=== PATIENT | female | born 1950 | race Caucasian/White ===

== ENCOUNTER 2016-08-04 19:10 | Inpatient (IN) ==
--- NOTE | 2016-08-04 19:50 | Emergency Department Note ---
Disposition Clinical Impression: Fall, Closed left hip fracture Disposition: Admitted As Inpatient Condition: Good Referrals: NO,PCP [Non-Partnered Physician] - Forms: ED Satisfaction Letter Time of Disposition: 21:10 Fall HPI - General Chief Complaint: ED Fall Stated Complaint: fall, L hip pain Time Seen by Provider: 08/04/16 19:15 Source: patient, EMS Mode of arrival: EMS Limitations: no limitations Nursing Notes Reviewed: Yes Vital Signs Reviewed: Yes - History of Present Illness HPI Narrative: 65-year-old female presents after a mechanical fall in which she tripped and fell onto her left hip. She complains of left hip pain and denies any other symptoms. She denies head injury or loss of consciousness. She denies neck pain, chest pain or shortness breath, abdominal pain, or back pain. She denies other extremity pain. She denies recent illness or injury, or medication change. Pt Subjective Complaint: fall - Related Data Home Medications Medication Instructions Recorded Confirmed Advair 500-50 Diskus 1 aerosol IH 2-3XD PRN 03/30/15 03/30/15 Albuterol Sulfate [Albuterol 2 puff IH TID 03/30/15 03/30/15 Inhaler] Atenolol [Tenormin] 50 tab PO DAILY 03/30/15 03/30/15 Atorvastatin 20 mg PO DAILY 03/30/15 03/30/15 Cyclobenzaprine [Flexeril] 10 mg PO TID 03/30/15 03/30/15 FLUoxetine HCl [Prozac] 40 mg PO DAILY 03/30/15 03/30/15 Furosemide [Lasix] 40 mg PO DAILY PRN 03/30/15 03/30/15 Isosorbide DInitrate 30 tab PO 03/30/15 03/30/15 Metformin HCl [Fortamet] 500 mg PO TID 03/30/15 03/31/15 Omeprazole [PriLOSEC] 40 mg PO DAILY 03/30/15 03/31/15 Previous Rx's Medication Instructions Recorded Levofloxacin [Levaquin] 500 mg PO DAILY #2 tablet 04/04/15 PredniSONE 10 tab PO DAILY #0 04/04/15 PredniSONE See Taper PO DAILY #27 tablet 04/04/15 Tiotropium [Spiriva] 18 mcg IH 0700 #30 capsule 04/04/15 Allergies Allergy/AdvReac Type Severity Reaction Status Date / Time No Known Allergies Allergy Verified 03/30/15 11:53 All systems ED: reviewed and negative except as stated. 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 - Social History Smoking Status: Former smoker Alcohol use: Reports: none Drug use: Reports: none Physical Exam - Head Head exam: atraumatic, normocephalic, normal inspection - Eye Eye exam: Present: normal appearance, PERRL, EOMI - ENT ENT exam: normal exam, normal oropharynx, mucous membranes moist - Neck Neck exam: Present: normal inspection, full ROM, trachea midline - Chest Chest inspection: Present: normal inspection, symmetric chest wall rise - Respiratory Respiratory exam: Clear to auscultation bilaterally without wheezes rales or rhonchi Cardiovascular Cardiovascular exam: Present: regular rate, normal rhythm, normal heart sounds - Abdominal Exam Abdominal exam: Present: soft, Non-Tender. Absent: tenderness, distention, guarding, rebound, rigidity - Extremities Exam There is diffuse tenderness to left hip. Normal pulses and sensation distal to the injury and equal in the bilateral lower extremity. No other tenderness to all 4 extremities. - Back Exam Back exam: Present: normal inspection, full ROM. Absent: tenderness, CVA tenderness (R), CVA tenderness (L) - Neurological Exam Neurological exam: Present: alert, oriented X3, CN II-XII intact - Psychiatric Psychiatric exam: Present: normal affect, normal mood - Skin Skin exam: Present: warm, dry, intact, normal color - General Limitations: no limitations General appearance: alert Course - Reevaluation(s) Reevaluation #1: Evaluation concerning for left femoral neck fracture. Dr. Benson notified and will see patient and consult the morning. Patient accepted to hospitalist service with Dr. Pulliam. Time: 21:16 Vital Signs Temperature 96.4 F L 08/04/16 19:13 Pulse Rate 99 08/04/16 19:13 Respiratory Rate 18 08/04/16 19:13 Blood Pressure 126/102 08/04/16 19:13 O2 Sat by Pulse Oximetry 92 L 08/04/16 19:13 Temperature 96.4 F L 08/04/16 19:13 Pulse Rate 101 08/04/16 21:02 Respiratory Rate 20 08/04/16 21:02 Blood Pressure 197/87 08/04/16 21:02 O2 Sat by Pulse Oximetry 92 L 08/04/16 21:02 Oxygen Delivery Oxygen Delivery Nasal Cannula Fall - Lab Data Result diagrams: 08/04/16 20:00 08/04/16 20:00 Lab Results 08/04/16 08/04/16 08/04/16 Range/Units 19:21 20:00 20:00 WBC 12.3 H (4.3-11.1) K/mcL RBC 4.90 (3.82-4.97) M/mcL Hgb 14.1 (11.5-15.4) g/dL Hct 44.1 (35.3-44.9) % MCV 90.0 (83.0-100.0) fL MCH 28.8 (28.0-33.3) pg MCHC 32.0 (31.6-35.5) g/dL RDW 12.9 (11.5-14.5) % Plt Count 265 (140-400) K/mcL MPV 10.1 (9.4-12.4) fL Immature Gran % 2.0 (0-4) % Seg Neutrophils % 73.3 % Lymphocytes % 18.4 % Monocytes % 4.7 % Eosinophils % 0.8 % Basophils % 0.8 % Neutrophils # 9.0 H (1.6-8.9) K/mcL Lymphocytes # 2.3 (0.6-4.6) K/mcL Monocytes # 0.6 (0.0-1.3) K/mcL Eosinophils # 0.1 (0.0-0.6) K/mcL Basophils # 0.1 (0.0-0.2) K/mcL Sodium 136 (136-145) mEq/L Potassium 4.0 (3.5-4.5) mEq/L Chloride 99 (98-109) mEq/L Carbon Dioxide 22 (19-29) mEq/L BUN 15 (7-20) mg/dL Creatinine 0.80 (0.57-1.11) mg/dL Est GFR ( Amer) > 60 (> 60) Est GFR (Non-Af Amer) > 60 (> 60) BUN/Creatinine Ratio 19 (6-26) Glucose 191 H (70-99) mg/dL POC Glucose 170 H (58-89) Calculated Osmolality 288 (280-300) Calcium 9.8 (8.6-10.8) mg/dL - EKG Data EKG attestation: Yes I reviewed and interpreted this EKG. EKG results narrative: Normal sinus rhythm at 94 with normal axis and intervals. No ST elevation or depression, there is nonspecific diffuse ST flattening. No significant change when compared with 03/30/2015. Attestation Statement - Attestation Attestation: I, Ger Wadsworth MD, personally performed a history and physical exam of the patient and discussed their management with the resident. I reviewed the resident's note and agree with the documented findings, medical decision making , and plan of care. 65-year-old female presents to the emergency department with a complaint that she lost her balance and fell at home just prior to arrival. She fell onto her left side and complains of left hip pain. She was unable to get up or bear weight on the hip. No other pain or injury from the fall. She states she did bump her head but there was no loss of consciousness and she denies any headache or head pain. No neck pain. No back pain. On examination patient is a well-developed obese elderly female in no acute distress. She is alert and oriented 3. There is no cyanosis or diaphoresis. Head is atraumatic. Neck supple and nontender with full range of motion. Rest sounds are clear and equal bilaterally. Heart regular rate and rhythm. Abdomen soft and nontender with normal bowel sounds. There is tenderness to palpation over the left hip with shortening and rotation of the left lower extremity. Her function distally. X-ray of the left hip shows an angulated femoral neck fracture. Chest x-ray showed no acute abnormality. Labs reviewed and unremarkable. Dr. Angeles discussed with the orthopedist, Dr. Benson, and he advised admit to the hospitalist. The hospitalist, Dr. Pulliam, was consulted and accepted admission of the patient.
[2016-08-04 20:08] LABS: Basophils # 0.1 K/mcL (0.0-0.2); Basophils % 0.8 %; Eosinophils # 0.1 K/mcL (0.0-0.6); Eosinophils % 0.8 %; Hematocrit 44.1 % (35.3-44.9); Hemoglobin 14.1 g/dL (11.5-15.4); Lymphocytes # 2.3 K/mcL (0.6-4.6); Lymphocytes % 18.4 %; Mean Corpuscular Hemoglobin 28.8 pg (28.0-33.3); Mean Platelet Volume 10.1 fL (9.4-12.4); Monocytes # 0.6 K/mcL (0.0-1.3); Monocytes % 4.7 %; Platelet Count 265 K/mcL (140-400); Red Cell Distribution Width 12.9 % (11.5-14.5); Segmented Neutrophils % 73.3 %
[2016-08-04 20:21] LABS: BUN/Creatinine Ratio 19 (6-26); Blood Urea Nitrogen 15 mg/dL (7-20); Calcium 9.8 mg/dL (8.6-10.8); Carbon Dioxide 22 mEq/L (19-29); Chloride 99 mEq/L (98-109); Glucose 191 mg/dL (70-99); Osmolality,Calculated 288 (280-300); Sodium 136 mEq/L (136-145); eGFR For African Americans > 60 (> 60); eGFR For Non-African Americans > 60 (> 60)
[2016-08-04] MEDS ORDERED: Ondansetron 4 MG/2 ML VIAL IVP STA (20:39)
[2016-08-04] MEDS ORDERED: *HR* HYDROmorphone (PF) 1 MG/ML SYRINGE IVP ONE (20:39)
[2016-08-04] MEDS ORDERED: Acetaminophen 325 MG TABLET PO PRN (23:45)
[2016-08-04] MEDS: *HR* HYDROmorphone (PF) 1 MG/ML SYRINGE IVP PRN (23:57)
[2016-08-05] MEDS ORDERED: Ondansetron 4 MG/2 ML VIAL IVP PRN (01:33)
[2016-08-05] MEDS ORDERED: *HR* Dextrose 50 % in Water (Syg) 50 ML SYRINGE IVP PRN (01:33)
[2016-08-05] MEDS ORDERED: D5% in Water 1,000 ML IV PRN (01:33)
[2016-08-05] MEDS ORDERED: Naloxone 0.4 MG/ML INJ IVP PRN (01:33)
[2016-08-05] MEDS ORDERED: Dextrose Gel 15 GM PO PRN ×2 (01:33)
[2016-08-05] MEDS ORDERED: Albuterol 2.5 MG/3 ML NEBULIZER IH PRN ×2 (01:40→13:39)
[2016-08-05] MEDS ORDERED: 0.9 % Sodium Chloride 1,000 ML IVC SCH (01:45)
--- NOTE | 2016-08-05 02:00 | Internal Med History&Physical ---
Date of Encounter: 08/05/16 Time of Encounter: 01:46 Assessment and Plan (1) Closed left hip fracture Current visit: Yes Status: Acute 1. Pt is high risk for perioperative morbidity and mortality due to her steroid and oxygen dependent COPD. Therefore, I recommend postponing surgery until pulmonary and anesthesia see patient in consultation and assess her risks. 2. I also will order ECHO to assess her LV function. 3. Dr. Benson consulted through the ER. 4. Will keep npo for any possible testing prior to surgery. Again, surgery should be postponed until the above consultants assess patient and give their recommendations. Qualifiers: Encounter type: initial encounter Qualified Code(s): S72.002A - Fracture of unspecified part of neck of left femur, initial encounter for closed fracture (2) Chronic steroid use Current visit: No Status: Chronic 1. I will order stress dose steroids in anticipation of possible surgery. 2. Wean Solu-cortef slowly after surgery back to home dose of prednisone. 3. Wound healing and recovery will likely be adversely affected by chronic steroid use. (3) Chronic respiratory failure Current visit: No Status: Chronic 1. Continue home oxygen at 2 -3 L NC. 2. Pt does not wear CPAP at home. 3. May need BiPap PRN. Qualifiers: Respiratory failure complication: hypercapnia Qualified Code(s): J96.12 - Chronic respiratory failure with hypercapnia (4) Non-insulin dependent type 2 diabetes mellitus Current visit: No Status: Chronic 1. Hold Metformin while in hospital. 2. Will use SSI. (5) Obstructive sleep apnea Current visit: No Status: Chronic 1. Pt non-compliant with home CPAP. 2. Will use CPAP/BiPap in the hospital if needed and if patient allows. (6) COPD (chronic obstructive pulmonary disease) Current visit: Yes Status: Chronic 1. Continue home meds as appropriate. 2. Steroid dependent. Will start Solu-Cortef stress dosing. 3. Consult Pulmonary and Anesthesia prior to surgery. 4. No acute flare up presently. Qualifiers: COPD type: emphysema Emphysema type: unspecified Qualified Code(s): J43.9 - Emphysema, unspecified (7) DVT prophylaxis Current visit: No Status: Acute 1. Heparin SQ. Internal Medicine - H&P: HPI Chief complaint: left hip fracture Admitted From: Emergency Dept Plans for Post Hospital Care: Home History of present illness: Ms. Stovall is a 65 year old female who presents to the hospital with complaints of pain in her left hip. She sustained a fall earlier today at home and injured her left hip. She was unable to get off the ground and was in severe pain. She was brought in by squad. Workup in the ER confirmed left hip fracture and patient has been admitted to the hospitalists service with an orthopedic consult. Upon my assessment of the patient, patient is in significant pain due to her fracture. She confirms a history of mechanical fall earlier. She denies any syncope. I reviewed her history and note that she has severe COPD, which is both steroid and oxygen dependent. She is very sedentary and minimally mobile. She has a history of diastolic congestive heart failure and sleep apnea. She is noncompliant with her CPAP. She has dyspnea at rest and has severe dyspnea with exertion. She has never undergone surgery and, as a result, we are unable to predict her reaction to anesthesia and postoperative course. Patient is also morbidly obese and may pose a problem for airway issue for anesthesia and postoperatively. As such, I recommend patient undergo pulmonary consultation preoperatively as well as anesthesia consultation and a preoperative echo. I anticipate she would be high risk for cardiovascular and respiratory complications perioperatively. Therefore, I recommend surgery be postponed until patient can be assessed both by pulmonology and anesthesia. I explained this to the patient, and she agrees with my recommendations. Past Med Surg Social Fam HX - Past Medical History Attestation: Yes The following information was validated with the patient. Source: patient, old records reviewed Medical history: CHF (diastolic), COPD (steroid and oxygen dependent), diabetes Psychiatric history: no psych history - Past Surgical History Surgical History: no surgical history - Social History Smoking Status: Former smoker (30+ year history of smoking) Smokeless Tobacco Status: No Alcohol use: none Drug use: none Current living situation: Home, With Family Activity Level: Mostly sedentary Recent Out of Country Travel Within the Last 8 Weeks: No - Family History Mother Hx Family Cardiac Disorders: Yes ([place]) Hx Family Cancer: Yes (CANCER) Internal Medicine - H&P: Meds Advair 500-50 Diskus 1 aerosol IH 2-3XD PRN 03/30/15 [History] Albuterol Sulfate [Albuterol Inhaler] 2 puff IH TID 03/30/15 [History] Atenolol [Tenormin] 50 tab PO DAILY 03/30/15 [History] Atorvastatin 20 mg PO DAILY 03/30/15 [History] Cyclobenzaprine [Flexeril] 10 mg PO TID 03/30/15 [History] FLUoxetine HCl [Prozac] 40 mg PO DAILY 03/30/15 [History] Furosemide [Lasix] 40 mg PO DAILY PRN 03/30/15 [History] Isosorbide DInitrate 30 tab PO 03/30/15 [History] Metformin HCl [Fortamet] 500 mg PO TID 03/30/15 [History] Omeprazole [PriLOSEC] 40 mg PO DAILY 03/30/15 [History] Levofloxacin [Levaquin] 500 mg PO DAILY #2 tablet 04/04/15 [Rx] PredniSONE 10 tab PO DAILY #0 04/04/15 [Rx] PredniSONE See Taper PO DAILY #27 tablet 04/04/15 [Rx] Tiotropium [Spiriva] 18 mcg IH 0700 #30 capsule 04/04/15 [Rx] Allergies No Known Allergies Allergy (Verified 03/30/15 11:53) - Constitutional Constitutional: falls, no chills, no fever(s) - EENT Eyes: no blurry vision, no change in vision Ears: no ear pain, no tinnitus Nose, mouth and throat: no nasal congestion, no sinus pain, no sinus pressure - Cardiovascular Cardiovascular ROS IM: no chest pain, no edema, no irregular heart rhythm, no lightheadedness, no orthopnea, no syncope - Respiratory Respiratory: dyspnea (chronic -- both at rest and with exertion), no cough, no excessive phlegm production, no change in phlegm color, no pain with cough - Gastrointestinal Gastrointestinal: no abdominal pain, no diarrhea, no hematemesis, no hematochezia, no melena, no vomiting - Genitourinary Genitourinary: no dysuria, no hematuria - Musculoskeletal Musculoskeletal ROS IM: arthralgias, back pain, muscle cramps - Integumentary Integumentary IM: no rash, no jaundice - Neurological Neurological ROS: frequent falls, no dizziness, no focal weakness, no headache(s ) - Psychiatric Psychiatric: anxiety, no depression - Endocrine Endocrine IM: no cold intolerance, no heat intolerance, no polydipsia, no polyuria - Hematologic/Lymphatic Hematologic/Lymphatic: no easy bruising, no lymphadenopathy - Allergic/Immunologic Allergic/Immunologic: wheezing, no GI upset with certain foods - Constitutional Vitals: Temp Pulse Resp BP Pulse Ox 98.2 F 109 22 174/90 94 L 08/04/16 22:56 08/04/16 22:56 08/04/16 22:56 08/04/16 22:56 08/05/16 00:01 General appearance: Present: cooperative, mild distress (due to pain; also she is SOB (chronic)), A&O X 3, morbidly obese, pleasant, answers questions appropriately - Head Head exam: Present: atraumatic, normal inspection - Expanded Head Exam Head exam expanded: Absent: abrasion, Jerome's sign, general tenderness - Eye Eye exam: Present: EOMI, normal appearance, PERRL. Absent: scleral icterus Pupils: Present: normal accommodation - ENT ENT exam: Present: mucous membranes dry, normal exam, normal oropharynx - Neck Neck exam general surgery: Present: full ROM, normal inspection, supple. Absent : lymphadenopathy, tenderness - Respiratory Respiratory exam: Present: accessory muscle use, decreased breath sounds, prolonged expiratory phase, respiratory distress (mild ), wheezes, tachypnea. Absent: CTAB - Cardiovascular Cardiovascular exam: Present: distant heart sounds, RRR, +S1, +S2. Absent: diastolic murmur, JVD, systolic murmur - GI/Abdominal GI/Abdominal exam: Present: normal bowel sounds, soft. Absent: guarding, hepatomegaly, rebound, splenomegaly, tenderness - Extremities Exam Extremities exam: Present: warm. Absent: calf tenderness, joint swelling, pedal edema Additional comments: pain left hip/femur -- due to fracture - Back Exam Back exam: Absent: CVA tenderness (L), CVA tenderness (R) - Neurological Exam Neurological exam: Present: alert, CN II-XII intact, oriented X3, no focal deficits - Psychiatric Psychiatric exam: Present: normal affect, normal mood - Skin Skin exam: Present: dry, warm. Absent: rash Internal Med - H&P Results - Labs CBC & Chem 7: 08/04/16 20:00 08/04/16 20:00 - EKG Data -: EKG Interpreted by Myself - EKG Data Prior EKG available for review: yes When compared to previous EKG: there is no significant change EKG comments: 08/05/16 02:08 Sinus rhtyhm -- non-specific ST-T flattening in precordial leads - Diagnostic Studies Chest x-ray Additional comments: report reviewed -- negative
[2016-08-05 03:46] LABS: Basophils # 0.1 K/mcL (0.0-0.2); Basophils % 0.5 %; Eosinophils # 0.1 K/mcL (0.0-0.6); Eosinophils % 0.7 %; Hematocrit 43.3 % (35.3-44.9); Hemoglobin 13.8 g/dL (11.5-15.4); Immature Granulocytes % 0.9 % (0-4); Lymphocytes # 2.1 K/mcL (0.6-4.6); Lymphocytes % 11.8 %; Mean Corpuscular HGB Conc 31.9 g/dL (31.6-35.5); Mean Corpuscular Hemoglobin 28.9 pg (28.0-33.3); Mean Corpuscular Volume 90.6 fL (83.0-100.0); Mean Platelet Volume 10.3 fL (9.4-12.4); Monocytes # 1.1 K/mcL (0.0-1.3); Neutrophils # 14.2 K/mcL (1.6-8.9); Platelet Count 248 K/mcL (140-400); Red Blood Count 4.78 M/mcL (3.82-4.97); Red Cell Distribution Width 12.9 % (11.5-14.5); Segmented Neutrophils % 80.1 %
[2016-08-05] MEDS: Ipratropium/Albuterol Neb 3 ML IH SCH ×5 (04:00→20:27)
[2016-08-05 04:04] LABS: Alanine Aminotransferase 38 Units/L (0-55); Albumin 3.5 g/dL (3.5-5.0); Albumin/Globulin Ratio 0.9 (1.1-2.2); Alkaline Phosphatase 79 Units/L (38-126); Aspartate Amino Transferase 32 Units/L (5-34); BUN/Creatinine Ratio 19 (6-26); Bilirubin,Total 0.5 mg/dL (0.2-1.2); Blood Urea Nitrogen 14 mg/dL (7-20); Calcium 9.5 mg/dL (8.6-10.8); Carbon Dioxide 22 mEq/L (19-29); Chloride 100 mEq/L (98-109); Globulin 3.8 g/dL (2.4-3.5); Glucose 226 mg/dL (70-99); Magnesium 1.9 mg/dL (1.6-2.6); Osmolality,Calculated 290 (280-300); Potassium 4.5 mEq/L (3.5-4.5); Sodium 136 mEq/L (136-145); Total Protein 7.3 g/dL (6.0-8.3); eGFR For African Americans > 60 (> 60); eGFR For Non-African Americans > 60 (> 60)
[2016-08-05] MEDS: Insulin LISPRO 300 UNITS/3 ML VIAL SQ SCH ×3 (06:16→17:04)
[2016-08-05] MEDS: *HR* Heparin 5,000 UNIT/ML VIAL SQ SCH ×2 (06:18→21:17)
--- NOTE | 2016-08-05 06:35 | Orthopedic Consult Note ---
Date of Encounter: 08/05/16 Time of Encounter: 06:33 History of Present Illness HPI: Ms. Stovall is a 65 year old female A significant pulmonary history status post fall yesterday with left hip fracture. Patient awake and alert and oriented 3 Left lower extremity decreased range of motion secondary to pain Shortness rotated Neurovascular intact X-ray review displaced left femoral neck fracture Surgical recommendation left hip hemiarthroplasty will require medical clearance risk-benefit as well as recovery for the surgical procedure were discussed as well as stressing the risk of the surgery with regard to her medical comorbidities. Past Med Surg Social Fam HX - Past Medical History Medical history: CHF (diastolic), COPD (steroid and oxygen dependent), diabetes Psychiatric history: no psych history - Past Surgical History Surgical History: no surgical history - Social History Smoking Status: Former smoker (30+ year history of smoking) Smokeless Tobacco Status: No Alcohol use: none Drug use: none - Family History Mother Hx Family Cardiac Disorders: Yes ([place]) Hx Family Cancer: Yes (CANCER) Medications and Allergies Advair 500-50 Diskus 1 aerosol IH 2-3XD PRN 03/30/15 [History] Albuterol Sulfate [Albuterol Inhaler] 2 puff IH TID 03/30/15 [History] Atenolol [Tenormin] 50 tab PO DAILY 03/30/15 [History] Atorvastatin 20 mg PO DAILY 03/30/15 [History] Cyclobenzaprine [Flexeril] 10 mg PO TID 03/30/15 [History] FLUoxetine HCl [Prozac] 40 mg PO DAILY 03/30/15 [History] Furosemide [Lasix] 40 mg PO DAILY PRN 03/30/15 [History] Isosorbide DInitrate 30 tab PO 03/30/15 [History] Metformin HCl [Fortamet] 500 mg PO TID 03/30/15 [History] Omeprazole [PriLOSEC] 40 mg PO DAILY 03/30/15 [History] Levofloxacin [Levaquin] 500 mg PO DAILY #2 tablet 04/04/15 [Rx] PredniSONE 10 tab PO DAILY #0 04/04/15 [Rx] PredniSONE See Taper PO DAILY #27 tablet 04/04/15 [Rx] Tiotropium [Spiriva] 18 mcg IH 0700 #30 capsule 04/04/15 [Rx] Allergies No Known Allergies Allergy (Verified 03/30/15 11:53) All Systems Reviewed: A 10-system review of systems was performed and is negative for pertinent findings except as documented above in the HPI. Physical Exam - Constitutional Vitals: Temp Pulse Resp BP Pulse Ox 98.2 F 109 18 174/90 93 L 08/04/16 22:56 08/04/16 22:56 08/05/16 04:00 08/04/16 22:56 08/05/16 04:00 Results - Labs Result Diagrams: 08/05/16 03:36 08/05/16 03:36 Labs: Abnormal lab results WBC 17.7 K/mcL (4.3-11.1) H 08/05/16 03:36 Neutrophils # 14.2 K/mcL (1.6-8.9) H 08/05/16 03:36 Glucose 226 mg/dL (70-99) H 08/05/16 03:36 POC Glucose 198 (58-89) H 08/05/16 05:57 Globulin 3.8 g/dL (2.4-3.5) H 08/05/16 03:36 Albumin/Globulin Ratio 0.9 (1.1-2.2) L 08/05/16 03:36 H & H 08/05/16 Range/Units 03:36 Hgb 13.8 (11.5-15.4) g/dL Hct 43.3 (35.3-44.9) % All other labs normal. Consult Discharge Plan - Plan Referrals: Chrissie Ken MD [Primary Care Provider] -
[2016-08-05] MEDS: *HR* HYDROmorphone (PF) 1 MG/ML SYRINGE IVP PRN ×2 (07:34→19:40)
[2016-08-05] MEDS: Hydrocortisone Sodium Succ 100 MG/2 ML VIAL IVP SCH ×2 (08:14→17:04)
[2016-08-05] MEDS: Famotidine 20 MG TABLET PO SCH ×2 (08:14→19:40)
--- NOTE | 2016-08-05 08:46 | Pulmonology Consult Note ---
Date of Encounter: 08/05/16 Time of Encounter: 08:42 Assessment and Plan (1) Preop pulmonary/respiratory exam Current Visit: Yes Status: Acute Preoperative Pulmonary Risk Assessment and Optimization Operation Directly Involves the Diaphgram: No Procedure Related Risk: Low Overall Risk of Patient:: High (this was determined by severity of COPD with chronic respiratory failure, complicated by Anxiety and LONNIE/morbid Obesity) [place] Respiratory failure index: 4.2% Postoperative Pneumonia Risk (Vines et al) approx 7.6% Post-operative complications including but not limited to pneumonia, respiratory failure requiring ventilation, and prolonged intubation requiring hospitalization. Specific Perioperative Recommendations: -Agree with stress dose steroids, -schedule bronchodilators (duonebs) every 6 hours, -use of CPAP with autotitration while receiving narcotics as high risk for acute cardiopulmonary failure, -monitor on tele with continuous pulse oximetry -agree with cardiology consult and repeat ECHO. Based upon todays exam BP control and would stop maint fluids -wean Fio2 to keep Spo2 >89-92% General Perioperative Pulmonary Recommendations: 1. Delay or cancel planned surgery for acute respiratory infection or exacerbation of pulmonary disease 2. Spinal or epidural anesthesia is favored over general anesthesia for patients who are at high risk for postoperative pulmonary complications 3. Optimize pain control while limiting use of sedatives and judicious use of narcotics. 4. Encourage early ambulation and use of incentive spirometry 5. Administration of bronchodilators 6. VTE prophylaxis including mechanical or chemical prophylaxis as dictated by post operative bleeding risk. 7.PAP therapy use during perioperative period unless contraindicated. (2) Closed left hip fracture Current Visit: Yes Status: Acute Qualifiers: Encounter type: initial encounter Qualified Code(s): S72.002A - Fracture of unspecified part of neck of left femur, initial encounter for closed fracture (3) COPD (chronic obstructive pulmonary disease) Current Visit: Yes Status: Chronic Qualifiers: COPD type: emphysema Emphysema type: unspecified Qualified Code(s): J43.9 - Emphysema, unspecified (4) Obesity Current Visit: No Status: Acute Qualifiers: Obesity severity: morbid Qualified Code(s): E66.01 - Morbid (severe) obesity due to excess calories (5) Chronic respiratory failure Current Visit: No Status: Chronic Qualifiers: Respiratory failure complication: hypercapnia Qualified Code(s): J96.12 - Chronic respiratory failure with hypercapnia (6) Obstructive sleep apnea Current Visit: No Status: Chronic History of Present Illness Consult date: 08/05/16 Requesting physician: Lizandro Snow Reason for consult: COPD Chief complaint: COPD History of present illness: Ms. Stovall is a 65-year-old woman with a history of advanced COPD with chronic respiratory failure dependent on oxygen and steroid dependent for COPD. This is complicated by severe anxiety and obstructive sleep apnea for which she is noncompliant with positive airway pressure therapy. Patient is also morbidly obese has a history of underlying diastolic dysfunction. She was admitted after fall with right femoral neck fracture. Lorazepam consult of her preoperative risk assessment and optimization. Patient was previously seen in pulmonary clinic greater than 2 years ago and has not been seen since she says that she has not followed up with pulmonary because of severe anxiety that limits her ability to leave the house. She cannot tolerate positive pressure therapy secondary to the high flow of air against her face. She denies having been admitted to the hospital last year for COPD exacerbation. She has no recent episodes of undergoing anesthesia. She did not have any recent pulmonary function testing were 6 minute walk to determine functional status although at home she says she is very limited can barely do activities of daily living. Past Med Surg Social Fam HX - Past Medical History Medical history: CHF (diastolic), COPD (steroid and oxygen dependent), diabetes Psychiatric history: no psych history - Past Surgical History Surgical History: no surgical history - Social History Smoking Status: Former smoker (30+ year history of smoking) Smokeless Tobacco Status: No Alcohol use: none Drug use: none - Family History Mother Hx Family Cardiac Disorders: Yes (HI) Hx Family Cancer: Yes (CANCER) Medications and Allergies Advair 500-50 Diskus 1 aerosol IH 2-3XD PRN 03/30/15 [History] Albuterol Sulfate [Albuterol Inhaler] 2 puff IH TID 03/30/15 [History] Atenolol [Tenormin] 50 tab PO DAILY 03/30/15 [History] Atorvastatin 20 mg PO DAILY 03/30/15 [History] Cyclobenzaprine [Flexeril] 10 mg PO TID 03/30/15 [History] FLUoxetine HCl [Prozac] 40 mg PO DAILY 03/30/15 [History] Furosemide [Lasix] 40 mg PO DAILY PRN 03/30/15 [History] Isosorbide DInitrate 30 tab PO 03/30/15 [History] Metformin HCl [Fortamet] 500 mg PO TID 03/30/15 [History] Omeprazole [PriLOSEC] 40 mg PO DAILY 03/30/15 [History] Levofloxacin [Levaquin] 500 mg PO DAILY #2 tablet 04/04/15 [Rx] PredniSONE 10 tab PO DAILY #0 04/04/15 [Rx] PredniSONE See Taper PO DAILY #27 tablet 04/04/15 [Rx] Tiotropium [Spiriva] 18 mcg IH 0700 #30 capsule 04/04/15 [Rx] Allergies No Known Allergies Allergy (Verified 03/30/15 11:53) All Systems: A 10-system review of systems was performed and is negative for pertinent findings except as documented above in the HPI. Physical Examination Vital Signs: Vital Signs, Last 4 Hours Temp Pulse Resp BP Pulse Ox 08/05/16 07:25 97.7 F 112 24 172/90 94 L General appearance: appears uncomfortable Eyes: nonicteric ENT: oropharynx moist Neck: supple, no lymphadenopathy Effort: mildly labored Auscultation: bilateral: diminished breath sounds (no clear wheezes ), other ( exam limited by body habitus and position) Cardiovascular: regular rate and rhythm Gastrointestinal: normoactive bowel sounds, non-tender Integumentary: normal Extremities: no cyanosis, other (trace b/l LE edema ) Musculoskeletal: joint tenderness (right hip ) normal mental status, non-focal exam, pupils equal and round anxious Results - Laboratory Findings CBC and BMP: 08/05/16 03:36 08/05/16 03:36 Abnormal lab findings: Abnormal lab results WBC 17.7 K/mcL (4.3-11.1) H 08/05/16 03:36 Neutrophils # 14.2 K/mcL (1.6-8.9) H 08/05/16 03:36 Glucose 226 mg/dL (70-99) H 08/05/16 03:36 POC Glucose 198 (58-89) H 08/05/16 05:57 Globulin 3.8 g/dL (2.4-3.5) H 08/05/16 03:36 Albumin/Globulin Ratio 0.9 (1.1-2.2) L 08/05/16 03:36 Consult Discharge Plan - Plan Referrals: Chrissie Ken MD [Primary Care Provider] -
[2016-08-05] MEDS ORDERED: Budesonide/Formoterol 160/4.5 MDI IH SCH (10:00)
[2016-08-05] MEDS ORDERED: NON-FORMULARY MEDICATION 1 EACH EACH (Oxygen [Oxygen] 3 L) SCH (13:45)
--- NOTE | 2016-08-05 15:21 | Internal Med Progress Note ---
Date of Encounter: 08/05/16 Time of Encounter: 09:10 - Assessment and plan (1) Closed left hip fracture Current Visit: Yes Status: Acute Assessment and plan: XRAY consistent with displaced left femoral neck fracture Ortho eval appreciated Given patient's chronic lung disease, patient is at high risk for post operative pulmonary complications. As per pulmonary, spinal or epidural anesthesia is favored over general anesthesia Awaiting anesthesia pre-op eval continue pain control Qualifiers: Encounter type: initial encounter Qualified Code(s): S72.002A - Fracture of unspecified part of neck of left femur, initial encounter for closed fracture (2) Preop pulmonary/respiratory exam Current Visit: Yes Status: Acute Assessment and plan: Pulmonary Eval with Dr. Valle appreciated Patient is high risk for postoperative pulmonary complications given chronic lung disease (3) COPD (chronic obstructive pulmonary disease) Current Visit: Yes Status: Chronic Assessment and plan: patient chronically on steroids Started stress dose steroids in anticipation of surgery continue CPAP use continue to monitor O2 sat, with O2 sat goal: 89-92% continue bronchodilator support as needed Qualifiers: COPD type: emphysema Emphysema type: unspecified Qualified Code(s): J43.9 - Emphysema, unspecified (4) Chronic respiratory failure Current Visit: No Status: Chronic Qualifiers: Respiratory failure complication: hypercapnia Qualified Code(s): J96.12 - Chronic respiratory failure with hypercapnia (5) Non-insulin dependent type 2 diabetes mellitus Current Visit: No Status: Chronic Assessment and plan: continue sliding scale insulin algorithm monitor fingerstick and blood glucose (6) Obstructive sleep apnea Current Visit: No Status: Chronic Assessment and plan: CPAP at bedtime (7) Morbid obesity with BMI of 40.0-44.9, adult Current Visit: Yes Status: Chronic (8) DVT prophylaxis Current Visit: No Status: Acute Assessment and plan: Heparin SQ (9) Hypertension Current Visit: Yes Status: Acute Assessment and plan: BP within acceptable range Tachycardia likely secondary to missed home dose of Atenolol Will restart home medications D/C IV fluids Qualifiers: Hypertension type: essential hypertension Qualified Code(s): I10 - Essential (primary) hypertension (10) Leukocytosis Current Visit: Yes Status: Acute Assessment and plan: Likely secondary to steroids no signs of infection present will continue to monitor off antibiotics at this time Qualifiers: Leukocytosis type: unspecified Qualified Code(s): D72.829 - Elevated white blood cell count, unspecified - Subjective Interval history: Patient seen and examined at bedside. REsting in bed, saturating well on bipap. Reported of breathing comfortably on bipap and pain being adequately controlled with the current pain regimen. - Constitutional Vitals: Temp Pulse Resp BP Pulse Ox 98.2 F 110 20 132/84 95 08/05/16 12:07 08/05/16 12:07 08/05/16 12:07 08/05/16 12:07 08/05/16 12:07 General appearance: Present: cooperative, A&O X 3, morbidly obese, pleasant, no acute distress, answers questions appropriately - Head Head exam: Present: atraumatic, normocephalic - Eye Eye exam: Present: conjuntiva pink, sclera anicteric - Respiratory Respiratory exam: Present: decreased breath sounds. Absent: wheezes - Cardiovascular Cardiovascular exam: Present: RRR, +S1, +S2 - GI/Abdominal GI/Abdominal exam: Present: normal bowel sounds, soft. Absent: distended, tenderness - Extremities Exam Extremities exam: Present: tenderness (left hip), warm, radial pulses palpable and symetrical. Absent: calf tenderness, pedal edema - Neurological Exam Neurological exam: Present: alert, oriented X3 - Psychiatric Psychiatric exam: Present: normal affect, normal mood Internal Medicine: Result - Labs CBC & Chem 7: 08/05/16 03:36 08/05/16 03:36 Labs: Short CBC 08/05/16 Range/Units 03:36 WBC 17.7 H (4.3-11.1) K/mcL Hgb 13.8 (11.5-15.4) g/dL Hct 43.3 (35.3-44.9) % Plt Count 248 (140-400) K/mcL Neutrophils # 14.2 H (1.6-8.9) K/mcL BMP 08/05/16 03:36 Sodium 136 Potassium 4.5 Chloride 100 Carbon Dioxide 22 BUN 14 Creatinine 0.73 Glucose 226 H Calcium 9.5 Liver Function 08/05/16 Range/Units 03:36 Total Bilirubin 0.5 (0.2-1.2) mg/dL AST 32 (5-34) Units/L ALT 38 (0-55) Units/L Alkaline Phosphatase 79 (38-126) Units/L Albumin 3.5 (3.5-5.0) g/dL Consult Discharge Plan - Plan Referrals: Rachid Benson MD [Partnered Physician] - 09/17/16 8:10 am Gay Green PAC [Physician Board Certified Music Therapist] - 08/22/16 11:00 am Chrissie Ken MD [Primary Care Provider] - 08/09/16 10:00 am
--- NOTE | 2016-08-05 15:48 | ECHO - Doppler Report ---
Echocardiogram Name: Susanna Stovall Date of Study: 08/05/2016 Date: 1950 Ht: 62.0 in Medical Record#: [id number] Age: 65 Wt: 242.0 lb Gender: Female BSA: 2.07 Order #: [id number] Location: [facility] Room #: [facility] Reading Physician: Aleisha Hernández DO Mannequin Sander And Finisher: Mookie Quintero RN Ordering Physician: Lizandro Snow MD Primary Physician: Chrissie Ken MD Indications: Preoperative Examination, COPD Impressions: LVEF 65%. Normal left ventricular size and systolic function. Indeterminate diastolic function. Normal right ventricular size and function. No significant valvular dysfunction. No pulmonary hypertension. Left Ventricular Wall Motion: Rest Echo Findings All wall segments showed normal motion. Findings: Study Quality * Technically sub-optimal due to body habitus. ECG Findings * Unclear underlying rhythm. Consider sinus tachycardia. Aortic Valve * No aortic regurgitation. * Aortic valve not well visualized. * No aortic stenosis. Mitral Valve * No mitral regurgitation. * Normal mitral valve structure. * No mitral stenosis. Left Atrium * Normal left atrial size. Left Ventricle * LVEF 65%. * Normal LV chamber size, wall thickness and function. * Indeterminate diastolic function. Tricuspid Valve * Tricuspid valve not well visualized. * No tricuspid regurgitation. Pulmonic Valve * Pulmonic valve is not well visualized. * No pulmonic stenosis. * No pulmonic regurgitation. Pulmonary Artery * Pulmonary artery not well visualized. Right Ventricle * Normal right ventricular structure and function. Right Atrium * Normal right atrial size. Interatrial Septum * No evidence of PFO by color Doppler. IVC * The IVC is not well evaluated. Pericardium * There is no pericardial effusion present. Aorta * Not well visualized. History Hypertension Diabetes Hypercholesteremia Family History of CAD 03/30/2015 a Previous Echo was performed. Measurements: BP: 132/ 84 2D Normal Values IVSd: .90 cm 0.6 - 1.0 cm LVIDd: 4.40 cm 3.7 - 5.6 cm LVPWd: .90 cm 0.6 - 1.1 cm LVIDs: 2.80 cm 1.5 - 3.6 cm LA: 3.50 cm 2.0 - 4.0cm %FS: 36.40 cm >25 % LVOT Diam: 2.00 cm LA volume: 38 Mitral Valve Peak E:.96 m/sec Peak E' Lat Cristian:8.77 cm/s Peak E' Med Cristian:8.68 cm/s E/E' Lat Ratio:11 E/E' Med Ratio:11.1 Updated by Aleisha Hernández on 08/05/2016 3:39:24 PM electronically signed on 08/05/2016 3:41:15 PM with status of Final Wall Motion [place]: 1=Normal, 2=Hypokinesis, 3=Akinesis, 4=Dyskinesis, 5=Aneurysmal, 6=Hyperkinetic, X=Not Visualized (Blank)=Missing
--- NOTE | 2016-08-05 17:40 | Electrocardiograph Report ---
[place] [id number] Test Date: 2016-08-04 Pat Name: Susanna Stovall Department: 105 Room: [facility] Gender: F Senior Partner: : 1950 Requested By: Lc Angeles Order Number: [id number] Reading MD: Aleisha Hernández Measurements Intervals [place] Rate: 94 P: 81 [place]: 168 QRS: 88 QRSD: 83 T: 71 QT: 365 QTc: 417 Interpretive Statements SINUS RHYTHM NONSPECIFIC T-WAVE ABNORMALITY Electronically Signed On 08-05-2016 17:38:52 EST by Aleisha Hernández
[2016-08-05] MEDS: Budesonide/Formoterol 160/4.5 MDI IH SCH (20:27)
[2016-08-06] MEDS: Hydrocortisone Sodium Succ 100 MG/2 ML VIAL IVP SCH ×3 (00:01→15:24)
[2016-08-06] MEDS: Insulin LISPRO 300 UNITS/3 ML VIAL SQ SCH ×4 (00:01→18:20)
[2016-08-06] MEDS: Ipratropium/Albuterol Neb 3 ML IH SCH ×7 (00:19→23:18)
[2016-08-06 05:09] LABS: Bilirubin,Urine Small (Negative); Blood,Urine Moderate (Negative); Color,Urine Amber (Yellow); Glucose,Urine (UA) Normal (Normal); Ketones,Urine Negative (Negative); Leukocyte Esterase,Urine Negative (Negative); Nitrite,Urine Negative (Negative); PH,Urine 5.5 pH Units (5.0-8.0); Protein,Urine 30 mg/dL (Neg-Trace); Specific Gravity,Urine 1.029 (1.010-1.025); Urobilinogen,Urine Normal (Normal)
[2016-08-06 05:10] LABS: Clarity,Urine Turbid (Clear)
[2016-08-06 05:14] LABS: Amorphous Sediment,Urine Many (Few); Bacteria,Urine Many per hpf (None-Few); Hyaline Casts,Urine None Seen per lpf (None-Few); Mucus,Urine Moderate (Few); Squamous Epithelial Cell,Urine Few per lpf (None-Few); WBC,Urine 0-3 per hpf (0-3)
[2016-08-06 06:19] LABS: Basophils % 0.3 %; Eosinophils # 0.1 K/mcL (0.0-0.6); Eosinophils % 0.5 %; Hematocrit 42.3 % (35.3-44.9); Hemoglobin 13.4 g/dL (11.5-15.4); Immature Granulocytes % 1.2 % (0-4); Lymphocytes # 1.3 K/mcL (0.6-4.6); Lymphocytes % 11.2 %; Mean Corpuscular HGB Conc 31.7 g/dL (31.6-35.5); Mean Corpuscular Hemoglobin 28.5 pg (28.0-33.3); Mean Platelet Volume 10.5 fL (9.4-12.4); Monocytes # 0.6 K/mcL (0.0-1.3); Monocytes % 5.1 %; Neutrophils # 9.8 K/mcL (1.6-8.9); Platelet Count 223 K/mcL (140-400); Red Cell Distribution Width 13.1 % (11.5-14.5); Segmented Neutrophils % 81.7 %
[2016-08-06] MEDS: *HR* Heparin 5,000 UNIT/ML VIAL SQ SCH ×2 (06:29→18:22)
--- NOTE | 2016-08-06 06:30 | Orthopedics Progress Note ---
Date of Encounter: 08/06/16 Time of Encounter: 06:29 Subjective Interval history: Patient seen this morning understand she is high risk for surgical procedure. Would like to attempt procedure under spinal. Surgery for tomorrow morning Objective Vital signs: Vital Signs Temp Pulse Resp BP Pulse Ox 08/06/16 04:00 98.1 F 93 24 150/93 95 08/06/16 03:37 20 95 08/06/16 00:19 20 95 08/05/16 23:43 98.0 F 83 23 148/98 95 08/05/16 20:27 19 94 L 08/05/16 19:40 98.3 F 88 25 151/98 95 08/05/16 17:34 20 96 Intake and Output 08/05/16 08/05/16 08/06/16 15:59 23:59 07:59 Output Total 450 / 450 Balance -450 / -450 Output: Catheter 450 / 450 Other: Blood Glucose* 155 164 - Labs CBC & BMP: 08/06/16 06:01 08/05/16 03:36 Labs: Abnormal lab results WBC 12.0 K/mcL (4.3-11.1) H 08/06/16 06:01 Neutrophils # 9.8 K/mcL (1.6-8.9) H 08/06/16 06:01 Glucose 226 mg/dL (70-99) H 08/05/16 03:36 POC Glucose 198 (58-89) H 08/05/16 05:57 Globulin 3.8 g/dL (2.4-3.5) H 08/05/16 03:36 Albumin/Globulin Ratio 0.9 (1.1-2.2) L 08/05/16 03:36 Urine Color [place] (Yellow) A 08/06/16 04:50 Urine Clarity Turbid (Clear) A 08/06/16 04:50 Ur Specific [place] 1.029 (1.010-1.025) H 08/06/16 04:50 Urine Protein 30 mg/dL (Neg-Trace) H 08/06/16 04:50 Urine Blood Moderate (Negative) H 08/06/16 04:50 Urine Bilirubin Small (Negative) H 08/06/16 04:50 Urine Microscopic RBC 5-15 per hpf (0-3) H 08/06/16 04:50 Amorphous Sediment Many (Few) H 08/06/16 04:50 Urine Bacteria Many per hpf (None-Few) H 08/06/16 04:50 Urine Mucus Moderate (Few) H 08/06/16 04:50 Consult Discharge Plan - Plan Referrals: Rachid Benson MD [Partnered Physician] - 09/17/16 8:10 am Gay Green, PAC [Physician Supervisor Esters And Emulsifiers] - 08/22/16 11:00 am Chrissie Ken MD [Primary Care Provider] - 08/09/16 10:00 am
[2016-08-06 06:33] LABS: BUN/Creatinine Ratio 17 (6-26); Blood Urea Nitrogen 11 mg/dL (7-20); Calcium 9.5 mg/dL (8.6-10.8); Carbon Dioxide 25 mEq/L (19-29); Chloride 100 mEq/L (98-109); Glucose 172 mg/dL (70-99); Osmolality,Calculated 287 (280-300); Phosphorous 3.7 mg/dL (2.3-4.7); Sodium 137 mEq/L (136-145); eGFR For African Americans > 60 (> 60); eGFR For Non-African Americans > 60 (> 60)
--- NOTE | 2016-08-06 07:41 | Pulmonology Progress Note ---
Date of Encounter: 08/06/16 Time of Encounter: 07:37 Assessment and Plan (1) Preop pulmonary/respiratory exam Current Visit: Yes Status: Acute patient remains high risk for a given underlying severity of COPD, chronic respiratory failure, low risk surgery (from pulmonary standpoint) ECHO done yesterday essentially unremarkable. See previous recs no additional preoperative recs from pulmonary perspective. Hip arthroplasty planned possibly under spinal anesthesia Ortho note tomorrow Crucial to wear CPAP in perioperative period while receiving narcotics in a monitored (pulse ox/hr) setting (2) Closed left hip fracture Current Visit: Yes Status: Acute Qualifiers: Encounter type: initial encounter Qualified Code(s): S72.002A - Fracture of unspecified part of neck of left femur, initial encounter for closed fracture (3) COPD (chronic obstructive pulmonary disease) Current Visit: Yes Status: Chronic stable symptoms of COPD cont Nebs cont steroids (stress dose) Qualifiers: COPD type: emphysema Emphysema type: unspecified Qualified Code(s): J43.9 - Emphysema, unspecified (4) Obesity Current Visit: No Status: Acute Qualifiers: Obesity severity: unspecified obesity severity Qualified Code(s): E66.9 - Obesity, unspecified (5) Chronic respiratory failure Current Visit: No Status: Chronic cont O2 supplement to keep sats 89-92% Qualifiers: Respiratory failure complication: hypercapnia Qualified Code(s): J96.12 - Chronic respiratory failure with hypercapnia (6) Obstructive sleep apnea Current Visit: No Status: Chronic cpap while napping/sleeping and if drowsy while using narcotics. Subjective Principal diagnosis: Hip Fracture Interval history: No events overnight. Patient says that breathing has improved and she slept well using CPAP. Still c/o of leg pain related to fracture. Denies cough fever chills Objective PUL Vital signs: Last Vital Signs Temp 98.7 F 08/06/16 06:35 Pulse 96 08/06/16 06:35 Resp 18 08/06/16 06:35 BP 164/96 08/06/16 06:35 Pulse Ox 96 08/06/16 06:35 General appearance: no acute distress ENT: oropharynx dry Effort: normal Auscultation: bilateral: diminished breath sounds (no wheeze ) Cardiovascular: regular rate and rhythm Extremities: no edema Musculoskeletal: joint tenderness normal mental status, non-focal exam mood appropriate Results - Laboratory Findings CBC and BMP: 08/06/16 06:01 08/06/16 06:01 Abnormal lab findings: Abnormal lab results WBC 12.0 K/mcL (4.3-11.1) H 08/06/16 06:01 Neutrophils # 9.8 K/mcL (1.6-8.9) H 08/06/16 06:01 Glucose 172 mg/dL (70-99) H 08/06/16 06:01 POC Glucose 198 (58-89) H 08/05/16 05:57 Globulin 3.8 g/dL (2.4-3.5) H 08/05/16 03:36 Albumin/Globulin Ratio 0.9 (1.1-2.2) L 08/05/16 03:36 Urine Color [place] (Yellow) A 08/06/16 04:50 Urine Clarity Turbid (Clear) A 08/06/16 04:50 Ur Specific [place] 1.029 (1.010-1.025) H 08/06/16 04:50 Urine Protein 30 mg/dL (Neg-Trace) H 08/06/16 04:50 Urine Blood Moderate (Negative) H 08/06/16 04:50 Urine Bilirubin Small (Negative) H 08/06/16 04:50 Urine Microscopic RBC 5-15 per hpf (0-3) H 08/06/16 04:50 Amorphous Sediment Many (Few) H 08/06/16 04:50 Urine Bacteria Many per hpf (None-Few) H 08/06/16 04:50 Urine Mucus Moderate (Few) H 08/06/16 04:50 - Clinical Findings Intake & Output: Intake & Output 08/05/16 08/05/16 08/06/16 15:59 23:59 07:59 Output Total 450 / 450 Balance -450 / -450 Consult Discharge Plan - Plan Referrals: Rachid Benson MD [Partnered Physician] - 09/17/16 8:10 am Gay Green PAC [Physician Materials Mgmt Tech] - 08/22/16 11:00 am Chrissie Ken MD [Primary Care Provider] - 08/09/16 10:00 am
[2016-08-06] MEDS: Budesonide/Formoterol 160/4.5 MDI IH SCH ×2 (08:12→20:24)
[2016-08-06] MEDS ORDERED: FLUoxetine 20 MG CAPSULE PO SCH (09:00)
[2016-08-06] MEDS ORDERED: Isosorbide MONOnitrate (24 HR) 30 MG TAB.ER.24H PO SCH (09:00)
[2016-08-06] MEDS ORDERED: Cholecalciferol (D-3) 1,000 UNIT TABLET PO SCH (09:00)
--- NOTE | 2016-08-06 09:14 | Internal Med Progress Note ---
Date of Encounter: 08/06/16 Time of Encounter: 09:13 - Assessment and plan (1) Closed left hip fracture Current Visit: Yes Status: Acute Assessment and plan: XRAY consistent with displaced left femoral neck fracture Ortho eval appreciated Patient scheduled for left hemiarthroplasty in the morning under spinal anesthesia Given patient's chronic lung disease, patient is at high risk for post operative pulmonary complications. Awaiting anesthesia pre-op eval continue pain control Physical therapy eval after the surgery. Qualifiers: Encounter type: initial encounter Qualified Code(s): S72.002A - Fracture of unspecified part of neck of left femur, initial encounter for closed fracture (2) Preop pulmonary/respiratory exam Current Visit: Yes Status: Acute Assessment and plan: Pulmonary Eval with Dr. Valle appreciated Patient is high risk for postoperative pulmonary complications given chronic lung disease (3) COPD (chronic obstructive pulmonary disease) Current Visit: Yes Status: Chronic Assessment and plan: patient chronically on steroids Continue stress dose steroids in anticipation of surgery continue CPAP use Patient refusing BiPAP/CPAP use and states she feels more comfortable with nasal cannula. Demonstrate understanding of her chronic lung disease. continue to monitor O2 sat, with O2 sat goal: 89-92% continue bronchodilator support as needed Qualifiers: COPD type: emphysema Emphysema type: unspecified Qualified Code(s): J43.9 - Emphysema, unspecified (4) Chronic respiratory failure Current Visit: No Status: Chronic Qualifiers: Respiratory failure complication: hypercapnia Qualified Code(s): J96.12 - Chronic respiratory failure with hypercapnia (5) Non-insulin dependent type 2 diabetes mellitus Current Visit: No Status: Chronic Assessment and plan: continue sliding scale insulin algorithm monitor fingerstick and blood glucose (6) Obstructive sleep apnea Current Visit: No Status: Chronic Assessment and plan: CPAP at bedtime (7) Morbid obesity with BMI of 40.0-44.9, adult Current Visit: Yes Status: Chronic (8) DVT prophylaxis Current Visit: No Status: Acute Assessment and plan: Heparin SQ (9) Hypertension Current Visit: Yes Status: Acute Assessment and plan: BP within acceptable range Tachycardia resolved Continue home medications Qualifiers: Hypertension type: essential hypertension Qualified Code(s): I10 - Essential (primary) hypertension (10) Leukocytosis Current Visit: Yes Status: Acute Assessment and plan: Likely secondary to steroids Leukocytosis persists but improved from the previous day no signs of infection present will continue to monitor off antibiotics at this time Qualifiers: Leukocytosis type: unspecified Qualified Code(s): D72.829 - Elevated white blood cell count, unspecified - Subjective Interval history: Patient seen and examined at bedside. Sitting in bed, saturating well on nasal cannula. Reports of severe left hip discomfort. Scheduled for left hemiarthroplasty in a.m. - Constitutional Vitals: Temp Pulse Resp BP Pulse Ox 98.7 F 96 18 164/96 96 08/06/16 06:35 08/06/16 06:35 08/06/16 08:12 08/06/16 06:35 08/06/16 08:12 General appearance: Present: A&O X 3, morbidly obese, no acute distress, answers questions appropriately - Head Head exam: Present: atraumatic, normocephalic - Eye Eye exam: Present: conjuntiva pink, sclera anicteric - Respiratory Respiratory exam: Present: decreased breath sounds. Absent: respiratory distress, wheezes - Cardiovascular Cardiovascular exam: Present: RRR, +S1, +S2 - GI/Abdominal GI/Abdominal exam: Present: distended (Obese), normal bowel sounds, soft. Absent: tenderness - Extremities Exam Extremities exam: Present: warm, radial pulses palpable and symetrical. Absent : calf tenderness, pedal edema, tenderness - Neurological Exam Neurological exam: Present: alert, oriented X3 - Psychiatric Psychiatric exam: Present: normal affect, normal mood Internal Medicine: Result - Labs CBC & Chem 7: 08/06/16 06:01 08/06/16 06:01 Labs: Short CBC 08/06/16 Range/Units 06:01 WBC 12.0 H (4.3-11.1) K/mcL Hgb 13.4 (11.5-15.4) g/dL Hct 42.3 (35.3-44.9) % Plt Count 223 (140-400) K/mcL Neutrophils # 9.8 H (1.6-8.9) K/mcL BMP 08/06/16 06:01 Sodium 137 Potassium 4.0 Chloride 100 Carbon Dioxide 25 BUN 11 Creatinine 0.63 Glucose 172 H Calcium 9.5 Urine 08/06/16 Range/Units 04:50 Urine Color Meredith A (Yellow) Urine Clarity Turbid A (Clear) Urine pH 5.5 (5.0-8.0) pH Units Ur Specific [place] 1.029 H (1.010-1.025) Urine Protein 30 H (Neg-Trace) mg/dL Urine Glucose (UA) Normal (Normal) mg/dL Consult Discharge Plan - Plan Referrals: Rachid Benson MD [Partnered Physician] - 09/17/16 8:10 am Gay Green PAC [Physician Qm Consultant] - 08/22/16 11:00 am Chrissie Ken MD [Primary Care Provider] - 08/09/16 10:00 am
[2016-08-06] MEDS: *HR* HYDROmorphone (PF) 1 MG/ML SYRINGE IVP PRN ×2 (10:41→18:17)
[2016-08-06] MEDS: Famotidine 20 MG TABLET PO SCH ×2 (10:44→20:25)
--- NOTE | 2016-08-06 14:59 | Anesthesia Evaluation PreOp ---
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 Any Significant HX Other Medical History: Diabetes Type II, GERD, Other ([facility] BMI=44.3) Anesthesia History: Past Anesthesia (no prior surgery) Alcohol Use: none Drug use: none Medications and Allergies Albuterol Sulfate [Albuterol Inhaler] 2 puff IH TID 03/30/15 [History] Atenolol [Tenormin] 50 mg PO DAILY 03/30/15 [History] Cyclobenzaprine [Flexeril] 10 mg PO TID 03/30/15 [History] FLUoxetine HCl [Prozac] 40 mg PO DAILY 03/30/15 [History] Furosemide [Lasix] 20 mg PO DAILY 03/30/15 [History] Metformin HCl [Fortamet] 500 mg PO TID 03/30/15 [History] Omeprazole [PriLOSEC] 40 mg PO DAILY 03/30/15 [History] PredniSONE 10 mg PO DAILY #0 03/30/15 [History] Albuterol Neb [Proventil Neb] 2.5 mg IH Q4H PRN 08/05/16 [History] Budesonide/Formoterol 160/4.5 [Symbicort 160/4.5] 2 puff IH BID 08/05/16 [ History] Calcium Carbonate/Vitamin D3 [Calcium 1,000 + D3 Caplet] 1 tab PO TID 08/05/16 [ History] Ipratropium [Atrovent Inhaler] 2 puff IH TID 08/05/16 [History] Isosorbide MONOnitrate (24 HR) [Imdur] 30 mg PO DAILY 08/05/16 [History] Oxygen 2 - 4 l .ROUTE AD 08/05/16 [History] Allergies No Known Allergies Allergy (Verified 03/30/15 11:53) - Meds/Allergy Pre-op Review Medications Reviewed: Yes Allergies Reviewed: Yes Beta Blockers on Current Med List: Yes If Beta Blockers taken, Date/Time (Last Dose taken): 08/06/2016 at 1044 Anesthesia Results - Labs 08/06/16 06:01 08/06/16 06:01 Laboratory Tests 03/30/15 11:50 PT 10.9 INR 1.02 PTT 28.6 - Imaging EKG: report reviewed (08/04/2016 SR, NSST abnormality) Additional studies: 08/05/2016 Echo LVEF 65% indeterminate diastolic function no significant valvular dysfunction no pulmonary HTN Anesthesia Exam Vital Signs/O2 Sat/Glucose, Most Recent Temp Pulse Resp BP Pulse Ox 98.5 F 92 16 168/94 96 08/06/16 11:07 08/06/16 11:07 08/06/16 11:29 08/06/16 11:07 08/06/16 11:29 Blood Glucose* 135 Height: 5'2''/1.57 m Weight: 242 lbs/109.769 kg Pain Scale: 3 Pain Scale Used: Numeric (1 - 10) - HEENT Pupil (Motor): EOMI Mallampati: III Teeth: Normal, Edentulous Denture Type: Upper: Complete Oral Opening: Greater than 3 - HEALTH C[employer]ERS INSTRUCTOR LOC: Oriented [employer] INSTRUCTOR Motor: Normal RUE, Normal LUE, Normal RLE, Normal LLE, Normal Face [employer] INSTRUCTOR Sensory: Normal: RUE, LUE, RLE, LLE, Face - Cardiac Rhythm: Regular Murmur: None - Pulmonary Breath Sounds: bilateral Clear (diminished BS) Respiratory Effort: Symmetrical Anesthesia Assess/Plan ASA Score: 4 Modified Mercedes Scale for Level of Consciousness: Cooperative, oriented, and tranquil Anesthetic Plan: Regional (Plan spinal with GA as backup.), Precautions ( Patient understands that she is at increased risk for perioperative complications including myocardial infarct, arrhythmias, CVA, post op vent support/ICU stay, and . Patient wishes to proceed.) Monitoring Plan: Standard Monitors Recovery Plan: PACU
[2016-08-07] MEDS: Hydrocortisone Sodium Succ 100 MG/2 ML VIAL IVP SCH ×2 (00:15→15:57)
[2016-08-07] MEDS: Insulin LISPRO 300 UNITS/3 ML VIAL SQ SCH ×5 (01:26→22:09)
[2016-08-07] MEDS: Ipratropium/Albuterol Neb 3 ML IH SCH ×5 (04:07→20:37)
[2016-08-07 06:09] LABS: Basophils # 0.1 K/mcL (0.0-0.2); Basophils % 0.6 %; Eosinophils % 0.4 %; Hematocrit 40.4 % (35.3-44.9); Immature Granulocytes % 1.7 % (0-4); Lymphocytes # 1.4 K/mcL (0.6-4.6); Lymphocytes % 12.9 %; Mean Corpuscular HGB Conc 32.2 g/dL (31.6-35.5); Mean Corpuscular Hemoglobin 28.7 pg (28.0-33.3); Mean Corpuscular Volume 89.2 fL (83.0-100.0); Mean Platelet Volume 10.6 fL (9.4-12.4); Monocytes # 0.7 K/mcL (0.0-1.3); Monocytes % 6.5 %; Neutrophils # 8.5 K/mcL (1.6-8.9); Platelet Count 203 K/mcL (140-400); Red Blood Count 4.53 M/mcL (3.82-4.97); Segmented Neutrophils % 77.9 %
[2016-08-07] MEDS: *HR* Heparin 5,000 UNIT/ML VIAL SQ SCH ×2 (06:17→18:52)
[2016-08-07 06:21] LABS: BUN/Creatinine Ratio 19 (6-26); Blood Urea Nitrogen 13 mg/dL (7-20); Calcium 9.8 mg/dL (8.6-10.8); Carbon Dioxide 27 mEq/L (19-29); Chloride 99 mEq/L (98-109); Glucose 193 mg/dL (70-99); Magnesium 1.6 mg/dL (1.6-2.6); Osmolality,Calculated 291 (280-300); Phosphorous 3.6 mg/dL (2.3-4.7); Potassium 3.7 mEq/L (3.5-4.5); Sodium 138 mEq/L (136-145); eGFR For African Americans > 60 (> 60); eGFR For Non-African Americans > 60 (> 60)
--- NOTE | 2016-08-07 06:45 | Orthopedics Progress Note ---
Date of Encounter: 08/07/16 Time of Encounter: 06:45 Subjective Principal diagnosis: Hip Fracture Interval history: Patient seen this morning understand she is high risk for surgical procedure. Going to surgery today Objective Vital signs: Vital Signs Temp Pulse Resp BP Pulse Ox 08/07/16 06:37 98.1 F 106 18 144/97 96 08/07/16 04:57 98.3 F 87 19 133/98 96 08/07/16 04:13 19 98 08/07/16 04:08 16 96 08/07/16 00:15 98.5 F 91 18 170/72 98 08/06/16 23:18 20 92 L 08/06/16 20:35 18 97 08/06/16 20:27 16 96 08/06/16 20:23 97.9 F 88 20 161/87 96 08/06/16 17:15 18 96 08/06/16 15:20 97.8 F 87 18 145/83 96 08/06/16 11:29 16 96 08/06/16 11:07 98.5 F 92 16 168/94 96 08/06/16 08:12 18 96 Intake and Output 08/06/16 08/06/16 08/07/16 15:59 23:59 07:59 Output Total 400 / 400 300 / 300 Balance -400 / -400 -300 / -300 Output: Catheter 400 / 400 300 / 300 Other: Blood Glucose* 135 175 183 - Labs CBC & BMP: 08/07/16 05:53 08/07/16 05:53 Labs: Abnormal lab results Glucose 193 mg/dL (70-99) H 08/07/16 05:53 POC Glucose 135 (58-89) H 08/06/16 11:07 Globulin 3.8 g/dL (2.4-3.5) H 08/05/16 03:36 Albumin/Globulin Ratio 0.9 (1.1-2.2) L 08/05/16 03:36 Urine Color Meredith (Yellow) A 08/06/16 04:50 Urine Clarity Turbid (Clear) A 08/06/16 04:50 Ur Specific [place] 1.029 (1.010-1.025) H 08/06/16 04:50 Urine Protein 30 mg/dL (Neg-Trace) H 08/06/16 04:50 Urine Blood Moderate (Negative) H 08/06/16 04:50 Urine Bilirubin Small (Negative) H 08/06/16 04:50 Urine Microscopic RBC 5-15 per hpf (0-3) H 08/06/16 04:50 Amorphous Sediment Many (Few) H 08/06/16 04:50 Urine Bacteria Many per hpf (None-Few) H 08/06/16 04:50 Urine Mucus Moderate (Few) H 08/06/16 04:50 Consult Discharge Plan - Plan Referrals: Rachid Benson MD [Partnered Physician] - 09/17/16 8:10 am Gay Green PAC [Physician Granite Polisher Machine] - 08/22/16 11:00 am Chrissie Ken MD [Primary Care Provider] - 08/09/16 10:00 am
[2016-08-07] MEDS: Budesonide/Formoterol 160/4.5 MDI IH SCH ×2 (07:26→20:37)
[2016-08-07] MEDS ORDERED: *HR* Midazolam HCl 2 MG/2 ML VIAL ONE (07:26)
[2016-08-07] MEDS ORDERED: *HR* FentaNYL (PF) 100 MCG/2 ML VIAL ONE (07:26)
[2016-08-07] MEDS ORDERED: Dexmedetomidine HCl 200 MCG/50 ML MLS IVC ONE (07:28)
[2016-08-07] MEDS ORDERED: Ketamine *HR* 500 MG/10 ML MDV ONE (07:44)
[2016-08-07] MEDS ORDERED: Ondansetron 4 MG/2 ML VIAL ONE (09:02)
[2016-08-07] MEDS ORDERED: Ketorolac 30 MG/ML VIAL ONE (09:08)
--- NOTE | 2016-08-07 09:15 | Orthopedic Operative Note ---
Date of procedure: 08/07/16 Pre-op diagnosis: Left fracture Post-op diagnosis: same Procedure: Procedure: Left hip hemiarthroplasty Estimated blood loss: 100 cc Hardware: Biomet 12 biometric femoral stem, standard adapter, 44 Endo head. Procedural Notes: Displaced left femoral neck fracture Operative procedure: The patient was brought to the operating room and placed on the operating room table. After general anesthesia was administered the patient was placed in the lateral decubitus position with the operative leg up. All pressure points were padded appropriately and the head was stabilized in the neutral position. The operative extremity was prepped and draped in the sterile surgical fashion patient received IV antibiotic prior to skin incision. A standard posterior approach is made to the operative hip, the incision was made through the skin and subcutaneous tissue hemostasis was obtained with Bovie cautery. Using careful sharp dissection the fascia was identified and incised exposing the external rotators. The external rotators were released off the greater trochanter and tagged with #2 FiberWire suture. The capsule was T'd open the femoral head was removed. The femoral neck cut was made at the appropriate level. The hip was brought into internal rotation and prepared with the wooden box maker followed by the canal finder followed by broaching process in 20 degrees anteversion. It was broached up to the appropriate size 12. The femoral implant was impacted in place in 20 degrees of anteversion. Trial reduction found the hip to be stable with the appropriate +0 and 44 head. The trials were removed and the real implants were impacted in place. The hip was reduced , the hip had full extension and full flexion of the knee was in full extension.the patient had apparent equal leg length. The hip had excellent stability with forward flexion to 90 degrees adduction of 30 degrees and internal rotation of 60 degrees. The hip had no shuck. The hip was irrigated out with 2 L of pulse irrigation. The external rotators were reattached to drill holes in the greater trochanter. Fascia was closed with running #2 PDS suture. The deep tissue was irrigated and closed deep with #1 PDS suture superficially with 0 PDS suture and skin was closed with kahlil. The patient was placed in a sterile dressing and abduction pillow. The patient was extubated and transferred to the recovery room in stable condition. Anesthesia: spinal Surgeon: Rachid Benson Associate: Gay Green Condition: stable Disposition: PACU
[2016-08-07] MEDS ORDERED: *HR* Promethazine 25 MG/ML VIAL IVP PRN (09:17)
[2016-08-07] MEDS ORDERED: *HR* HYDROmorphone (PF) 1 MG/ML SYRINGE IVP PRN ×2 (09:17→11:17)
[2016-08-07] MEDS ORDERED: Acetaminophen IV 1,000 MG/100 ML INFUS..BTL ONE (09:22)
[2016-08-07 10:13] LABS: Hemoglobin 11.5 g/dL (11.5-15.4)
--- NOTE | 2016-08-07 10:50 | Anesthesia Evaluation Post Op ---
Date of Encounter: 08/07/16 Time of Encounter: 10:50 - Vital Signs Vital Signs: Vital Signs/O2 Sat/Glucose, Most Current Temp Pulse Resp BP Pulse Ox 08/07/16 10:25 97.5 F L 73 16 121/65 95 08/07/16 10:15 67 16 90/56 98 08/07/16 10:05 98.0 F 68 16 81/56 98 08/07/16 09:55 73 16 88/54 98 08/07/16 09:45 72 14 91/77 97 08/07/16 09:35 97.0 F L 80 16 114/81 94 L 08/07/16 08:33 89 16 145/98 100 08/07/16 07:44 90 16 150/98 95
[2016-08-07] MEDS ORDERED: D5% in Water 1,000 ML IV PRN (11:17)
[2016-08-07] MEDS ORDERED: Temazepam 15 MG CAPSULE PO PRN (11:17)
[2016-08-07] MEDS ORDERED: *HR* OxyCODONE Immed Rel 5 MG TABLET PO PRN (11:17)
[2016-08-07] MEDS ORDERED: Acetaminophen 325 MG TABLET PO PRN (11:17)
[2016-08-07] MEDS ORDERED: Ondansetron 4 MG/2 ML VIAL IVP PRN ×2 (11:17)
[2016-08-07] MEDS ORDERED: Albuterol 2.5 MG/3 ML NEBULIZER IH PRN ×2 (11:17)
[2016-08-07] MEDS ORDERED: Dextrose Gel 15 GM PO PRN ×2 (11:17)
[2016-08-07] MEDS ORDERED: MOM Conc 10 ML UD.LIQ PO PRN (11:17)
[2016-08-07] MEDS ORDERED: *HR* Dextrose 50 % in Water (Syg) 50 ML SYRINGE IVP PRN (11:17)
[2016-08-07] MEDS ORDERED: Sennosides 8.6 MG TABLET PO PRN (11:17)
[2016-08-07] MEDS ORDERED: Naloxone 0.4 MG/ML INJ IVP PRN (11:17)
[2016-08-07] MEDS: Ringers Solution, Lactated 1,000 ML IVC SCH (12:00)
[2016-08-07] MEDS: Multivit/Ca/Min/Fe/FA 1 TAB TABLET PO SCH (12:02)
[2016-08-07] MEDS: Ascorbic Acid 500 MG TABLET PO SCH ×2 (12:02→17:50)
[2016-08-07] MEDS: ceFAZolin 2,000 MG in D5% in Water 100 ML IVPB SCH ×2 (12:10→19:26)
[2016-08-07] MEDS: *HR* OxyCODONE Immed Rel 5 MG TABLET PO PRN (15:58)
--- NOTE | 2016-08-07 17:31 | Internal Med Progress Note ---
Date of Encounter: 08/07/16 Time of Encounter: 13:00 - Assessment and plan (1) Closed left hip fracture Current Visit: Yes Status: Acute Assessment and plan: XRAY consistent with displaced left femoral neck fracture Ortho eval appreciated status post left hemiarthroplasty (08/07/16) continue pain control Physical therapy eval Qualifiers: Encounter type: initial encounter Qualified Code(s): S72.002A - Fracture of unspecified part of neck of left femur, initial encounter for closed fracture (2) COPD (chronic obstructive pulmonary disease) Current Visit: Yes Status: Chronic Qualifiers: COPD type: emphysema Emphysema type: unspecified Qualified Code(s): J43.9 - Emphysema, unspecified (3) Chronic respiratory failure Current Visit: No Status: Chronic Assessment and plan: continue steroid and bronchodilator support O2 supplementation monitor O2 sat (goal O2 sat: 89-92%) Qualifiers: Respiratory failure complication: hypercapnia Qualified Code(s): J96.12 - Chronic respiratory failure with hypercapnia (4) Non-insulin dependent type 2 diabetes mellitus Current Visit: No Status: Chronic Assessment and plan: continue sliding scale insulin algorithm monitor fingerstick and blood glucose (5) Obstructive sleep apnea Current Visit: No Status: Chronic Assessment and plan: CPAP at bedtime (6) Morbid obesity with BMI of 40.0-44.9, adult Current Visit: Yes Status: Chronic (7) DVT prophylaxis Current Visit: No Status: Acute Assessment and plan: Heparin SQ (8) Hypertension Current Visit: Yes Status: Chronic Assessment and plan: BP within acceptable range Tachycardia resolved Continue home medications Qualifiers: Hypertension type: essential hypertension Qualified Code(s): I10 - Essential (primary) hypertension (9) Leukocytosis Current Visit: Yes Status: Resolved Qualifiers: Leukocytosis type: unspecified Qualified Code(s): D72.829 - Elevated white blood cell count, unspecified - Subjective Interval history: Patient seen and examined at bedside. Sitting in bed, saturating well on nasal cannula. status post for left hemiarthroplasty today. tolerated the procedure well. no complains at this time. - Constitutional Vitals: Temp Pulse Resp BP Pulse Ox 98 F 92 16 125/81 93 L 08/07/16 16:10 08/07/16 16:10 08/07/16 16:47 08/07/16 16:10 08/07/16 16:47 General appearance: Present: A&O X 3, morbidly obese, no acute distress, answers questions appropriately - Head Head exam: Present: atraumatic, normocephalic - Eye Eye exam: Present: normal appearance, conjuntiva pink, sclera anicteric - Respiratory Respiratory exam: Absent: respiratory distress, wheezes - Cardiovascular Cardiovascular exam: Present: RRR, +S1, +S2 - GI/Abdominal GI/Abdominal exam: Present: normal bowel sounds, soft. Absent: tenderness - Extremities Exam Extremities exam: Present: pedal edema, warm, radial pulses palpable and symetrical. Absent: tenderness - Neurological Exam Neurological exam: Present: alert, oriented X3 - Psychiatric Psychiatric exam: Present: normal affect, normal mood Internal Medicine: Result - Labs CBC & Chem 7: 08/07/16 09:58 08/07/16 05:53 Labs: Short CBC 08/07/16 08/07/16 Range/Units 05:53 09:58 WBC 11.0 (4.3-11.1) K/mcL Hgb 13.0 11.5 D (11.5-15.4) g/dL Hct 40.4 35.0 L (35.3-44.9) % Plt Count 203 (140-400) K/mcL Neutrophils # 8.5 (1.6-8.9) K/mcL BMP 08/07/16 05:53 Sodium 138 Potassium 3.7 Chloride 99 Carbon Dioxide 27 BUN 13 Creatinine 0.68 Glucose 193 H Calcium 9.8 - Impressions Impressions Hip X-Ray 08/07/16 07:43 IMPRESSION: Status post left hip hemiarthroplasty without acute complication. D/ / 08/07/2016 10:33:16 Ravi Tucker MD / sharriay Interpreting Provider: Ravi Tucker MD - VTE Documentation of Mechanical Device: Venous foot pump, device Consult Discharge Plan - Plan Referrals: Rachid Benson MD [Partnered Physician] - 09/17/16 8:10 am Gay Green PAC [Physician Loss Control Manager] - 08/22/16 11:00 am Chrissie Ken MD [Primary Care Provider] - 08/09/16 10:00 am
[2016-08-07] MEDS: Famotidine 20 MG TABLET PO SCH (22:09)
[2016-08-08] MEDS: Hydrocortisone Sodium Succ 100 MG/2 ML VIAL IVP SCH ×2 (00:24→07:46)
[2016-08-08] MEDS: Ipratropium/Albuterol Neb 3 ML IH SCH ×6 (00:34→20:11)
[2016-08-08] MEDS: Ringers Solution, Lactated 1,000 ML IVC SCH (04:06)
[2016-08-08 05:03] LABS: Basophils % 0.3 %; Eosinophils % 0.3 %; Hematocrit 37.3 % (35.3-44.9); Hemoglobin 12.1 g/dL (11.5-15.4); Immature Granulocytes % 1.5 % (0-4); Lymphocytes # 1.3 K/mcL (0.6-4.6); Lymphocytes % 10.4 %; Mean Corpuscular HGB Conc 32.4 g/dL (31.6-35.5); Mean Corpuscular Hemoglobin 29.2 pg (28.0-33.3); Mean Corpuscular Volume 90.1 fL (83.0-100.0); Mean Platelet Volume 10.5 fL (9.4-12.4); Monocytes % 8.2 %; Neutrophils # 9.6 K/mcL (1.6-8.9); Platelet Count 196 K/mcL (140-400); Red Blood Count 4.14 M/mcL (3.82-4.97); Segmented Neutrophils % 79.3 %
[2016-08-08 05:16] LABS: Magnesium 1.6 mg/dL (1.6-2.6); Phosphorous 4.4 mg/dL (2.3-4.7)
[2016-08-08 05:28] LABS: BUN/Creatinine Ratio 18 (6-26); Blood Urea Nitrogen 12 mg/dL (7-20); Calcium 9.7 mg/dL (8.6-10.8); Carbon Dioxide 28 mEq/L (19-29); Chloride 97 mEq/L (98-109); Glucose 202 mg/dL (70-99); Osmolality,Calculated 288 (280-300); Potassium 3.9 mEq/L (3.5-4.5); Sodium 136 mEq/L (136-145); eGFR For African Americans > 60 (> 60); eGFR For Non-African Americans > 60 (> 60)
[2016-08-08] MEDS: *HR* Heparin 5,000 UNIT/ML VIAL SQ SCH ×2 (06:17→18:37)
[2016-08-08] MEDS ORDERED: Azithromycin 250 MG TABLET PO ONE (07:45)
[2016-08-08] MEDS: Isosorbide MONOnitrate (24 HR) 30 MG TAB.ER.24H PO SCH (07:47)
[2016-08-08] MEDS: Ascorbic Acid 500 MG TABLET PO SCH ×2 (07:47→18:14)
[2016-08-08] MEDS: Multivit/Ca/Min/Fe/FA 1 TAB TABLET PO SCH (07:47)
[2016-08-08] MEDS: FLUoxetine 20 MG CAPSULE PO SCH (07:47)
[2016-08-08] MEDS: Famotidine 20 MG TABLET PO SCH ×2 (07:47→20:33)
[2016-08-08] MEDS: Cholecalciferol (D-3) 1,000 UNIT TABLET PO SCH (07:48)
[2016-08-08] MEDS: Insulin LISPRO 300 UNITS/3 ML VIAL SQ SCH ×4 (07:48→20:31)
--- NOTE | 2016-08-08 07:49 | Pulmonology Progress Note ---
Date of Encounter: 08/08/16 Time of Encounter: 07:47 Assessment and Plan (1) COPD exacerbation Current Visit: Yes Status: Acute mild COPD exacebation Cont BDs and MDIs Start Azithro 50mmg today and 250mg thereafter for 5 days total (zpack) Wean steroids to 40mg prednisone for 5 days then back to home dose. sputum culture pending (2) Closed left hip fracture Current Visit: Yes Status: Acute s/p repair no untoward effects Qualifiers: Encounter type: initial encounter Qualified Code(s): S72.002A - Fracture of unspecified part of neck of left femur, initial encounter for closed fracture (3) Obesity Current Visit: No Status: Acute Qualifiers: Obesity severity: unspecified obesity severity Qualified Code(s): E66.9 - Obesity, unspecified (4) Chronic respiratory failure Current Visit: No Status: Chronic cont O2 supplement to keep sats 89-92% Qualifiers: Respiratory failure complication: hypercapnia Qualified Code(s): J96.12 - Chronic respiratory failure with hypercapnia (5) Obstructive sleep apnea Current Visit: No Status: Chronic cpap while napping/sleeping and if drowsy while using narcotics. would avoid benzos/sleep aids as possible Subjective Principal diagnosis: Hip Fracture Interval history: Underwent hip arthorplasty yesterday and did well Post Operatively. No events overnight. Patient says that she is coughing up "globs" of greenish phlegm but says that her breathing is ok. Slept well with CPAP Objective PUL Vital signs: Last Vital Signs Temp 99.0 F 08/08/16 07:13 Pulse 104 08/08/16 07:13 Resp 18 08/08/16 07:13 BP 147/106 08/08/16 07:13 Pulse Ox 100 08/08/16 07:13 General appearance: no acute distress Eyes: nonicteric ENT: oropharynx moist Effort: normal Auscultation: bilateral: diminished breath sounds (no wheeze ) Cardiovascular: regular rate and rhythm Gastrointestinal: normoactive bowel sounds Musculoskeletal: joint tenderness (at right hip) normal mental status, non-focal exam mood appropriate Results - Laboratory Findings CBC and BMP: 08/08/16 04:46 08/08/16 04:46 Abnormal lab findings: Abnormal lab results WBC 12.1 K/mcL (4.3-11.1) H 08/08/16 04:46 Neutrophils # 9.6 K/mcL (1.6-8.9) H 08/08/16 04:46 Chloride 97 mEq/L (98-109) L 08/08/16 04:46 Glucose 202 mg/dL (70-99) H 08/08/16 04:46 POC Glucose 238 (58-89) H 08/07/16 21:11 Globulin 3.8 g/dL (2.4-3.5) H 08/05/16 03:36 Albumin/Globulin Ratio 0.9 (1.1-2.2) L 08/05/16 03:36 Urine Color Meredith (Yellow) A 08/06/16 04:50 Urine Clarity Turbid (Clear) A 08/06/16 04:50 Ur Specific [place] 1.029 (1.010-1.025) H 08/06/16 04:50 Urine Protein 30 mg/dL (Neg-Trace) H 08/06/16 04:50 Urine Blood Moderate (Negative) H 08/06/16 04:50 Urine Bilirubin Small (Negative) H 08/06/16 04:50 Urine Microscopic RBC 5-15 per hpf (0-3) H 08/06/16 04:50 Amorphous Sediment Many (Few) H 08/06/16 04:50 Urine Bacteria Many per hpf (None-Few) H 08/06/16 04:50 Urine Mucus Moderate (Few) H 08/06/16 04:50 - Clinical Findings Intake & Output: Intake & Output 08/07/16 08/07/16 08/08/16 15:59 23:59 07:59 Intake Total 100 / 100 750 / 750 1300 / 1300 Output Total 100 / 100 450 / 450 850 / 850 Balance 0 / 0 300 / 300 450 / 450 - VTE Documentation of Mechanical Device: Venous foot pump, device Consult Discharge Plan - Plan Referrals: Rachid Benson MD [Partnered Physician] - 09/17/16 8:10 am Gay Green PAC [Physician Powder Loader] - 08/22/16 11:00 am Chrissie Ken MD [Primary Care Provider] - 08/09/16 10:00 am
--- NOTE | 2016-08-08 08:08 | Orthopedics Progress Note ---
Date of Encounter: 08/08/16 Time of Encounter: 08:08 Subjective Principal diagnosis: Hip Fracture Interval history: Patient was seen this morning doing well without complaints. Afebrile vital signs stable. Operative extremity: Neurovascularly intact Dressing clean dry and intact Calves nontender Assessment and plan: Continue with postoperative care Objective Vital signs: Vital Signs Temp Pulse Resp BP Pulse Ox 08/08/16 07:58 94 L 08/08/16 07:13 99.0 F 104 18 147/106 100 08/08/16 04:00 99.2 F 89 18 154/93 94 L 08/08/16 03:43 22 93 L 08/08/16 01:52 95 08/08/16 00:34 22 95 08/08/16 00:00 98.3 F 90 17 155/99 91 L 08/07/16 20:37 20 95 08/07/16 20:00 98.3 F 80 20 154/97 93 L 08/07/16 16:47 16 93 L 08/07/16 16:10 98 F 92 16 125/81 96 08/07/16 15:18 90 L 08/07/16 14:16 90 L 08/07/16 13:50 98.1 F 85 16 126/75 94 L 08/07/16 12:50 98.0 F 84 16 111/74 95 08/07/16 11:50 98.1 F 82 16 112/79 92 L 08/07/16 11:35 16 97 08/07/16 11:22 97.6 F 74 16 89 L 08/07/16 10:49 97.4 F L 73 16 110/67 97 08/07/16 10:25 97.5 F L 73 16 121/65 95 08/07/16 10:15 67 16 90/56 98 08/07/16 10:05 98.0 F 68 16 81/56 98 08/07/16 09:55 73 16 88/54 98 08/07/16 09:45 72 14 91/77 97 08/07/16 09:35 97.0 F L 80 16 114/81 94 L 08/07/16 08:33 89 16 145/98 100 Intake and Output 08/07/16 08/08/16 08/08/16 23:59 07:59 15:59 Intake Total 750 / 750 1300 / 1300 Output Total 450 / 450 1000 / 1000 Balance 300 / 300 300 / 300 Intake: IV Fluids 1000 / 1000 Lactated Ringers 1,000 ML 1000 / 1000 @ 75 mls/hr IVC .[id number] [facility] Rx#:[id number] Oral 750 / 750 300 / 300 Output: Urine 150 / 150 Urethral ([place]) 150 / 150 Catheter 450 / 450 850 / 850 Other: Blood Glucose* 238 188 - Labs CBC & BMP: 08/08/16 04:46 08/08/16 04:46 Labs: Abnormal lab results WBC 12.1 K/mcL (4.3-11.1) H 08/08/16 04:46 Neutrophils # 9.6 K/mcL (1.6-8.9) H 08/08/16 04:46 Chloride 97 mEq/L (98-109) L 08/08/16 04:46 Glucose 202 mg/dL (70-99) H 08/08/16 04:46 POC Glucose 238 (58-89) H 08/07/16 21:11 Globulin 3.8 g/dL (2.4-3.5) H 08/05/16 03:36 Albumin/Globulin Ratio 0.9 (1.1-2.2) L 08/05/16 03:36 Urine Color Meredith (Yellow) A 08/06/16 04:50 Urine Clarity Turbid (Clear) A 08/06/16 04:50 Ur Specific [place] 1.029 (1.010-1.025) H 08/06/16 04:50 Urine Protein 30 mg/dL (Neg-Trace) H 08/06/16 04:50 Urine Blood Moderate (Negative) H 08/06/16 04:50 Urine Bilirubin Small (Negative) H 08/06/16 04:50 Urine Microscopic RBC 5-15 per hpf (0-3) H 08/06/16 04:50 Amorphous Sediment Many (Few) H 08/06/16 04:50 Urine Bacteria Many per hpf (None-Few) H 08/06/16 04:50 Urine Mucus Moderate (Few) H 08/06/16 04:50 - VTE Documentation of Mechanical Device: Venous foot pump, device Consult Discharge Plan - Plan Referrals: Rachid Benson MD [Partnered Physician] - 09/17/16 8:10 am Gay Green PAC [Physician Hot Blaster] - 08/22/16 11:00 am Chrissie Ken MD [Primary Care Provider] - 08/09/16 10:00 am
[2016-08-08] MEDS: *HR* OxyCODONE Immed Rel 5 MG TABLET PO PRN (08:25)
[2016-08-08] MEDS: Budesonide/Formoterol 160/4.5 MDI IH SCH ×2 (08:35→20:11)
--- NOTE | 2016-08-08 09:42 | Internal Med Progress Note ---
Date of Encounter: 08/08/16 Time of Encounter: 09:41 - Assessment and plan (1) Closed left hip fracture Current Visit: Yes Status: Acute Assessment and plan: XRAY consistent with displaced left femoral neck fracture Ortho eval appreciated status post left hemiarthroplasty (08/07/16) continue pain control Physical therapy recommended rehabilitation placement Qualifiers: Encounter type: initial encounter Qualified Code(s): S72.002A - Fracture of unspecified part of neck of left femur, initial encounter for closed fracture (2) COPD (chronic obstructive pulmonary disease) Current Visit: Yes Status: Chronic Assessment and plan: patient chronically on steroids Noted to have mild COPD exacerbation Started on antibiotics by pulmonary Pulmonary eval appreciated By mouth steroids and bronchodilator support Follow-up sputum culture O2 Supplementation as needed Monitor O2 sat, O2 sat 89-92% CPAP at bedtime Qualifiers: COPD type: emphysema Emphysema type: unspecified Qualified Code(s): J43.9 - Emphysema, unspecified (3) Chronic respiratory failure Current Visit: No Status: Chronic Assessment and plan: continue steroid and bronchodilator support O2 supplementation monitor O2 sat (goal O2 sat: 89-92%) Qualifiers: Respiratory failure complication: hypercapnia Qualified Code(s): J96.12 - Chronic respiratory failure with hypercapnia (4) Non-insulin dependent type 2 diabetes mellitus Current Visit: No Status: Chronic Assessment and plan: continue sliding scale insulin algorithm monitor fingerstick and blood glucose (5) Obstructive sleep apnea Current Visit: No Status: Chronic Assessment and plan: CPAP at bedtime (6) Morbid obesity with BMI of 40.0-44.9, adult Current Visit: Yes Status: Chronic (7) DVT prophylaxis Current Visit: No Status: Acute Assessment and plan: Heparin SQ (8) Hypertension Current Visit: Yes Status: Chronic Assessment and plan: BP within acceptable range Continue home medications Qualifiers: Hypertension type: essential hypertension Qualified Code(s): I10 - Essential (primary) hypertension - Subjective Interval history: Patient seen and examined at bedside. Sitting in chair, noted to have productive cough. No overnight events reported. Reported to sleep comfortably with CPAP overnight. - Constitutional Vitals: Temp Pulse Resp BP Pulse Ox 99.0 F 104 20 147/106 90 L 08/08/16 07:13 08/08/16 07:13 08/08/16 08:35 08/08/16 07:13 08/08/16 08:35 General appearance: Present: A&O X 3, morbidly obese, no acute distress, answers questions appropriately - Head Head exam: Present: atraumatic, normocephalic - Eye Eye exam: Present: normal appearance, conjuntiva pink, sclera anicteric - Respiratory Respiratory exam: Present: decreased breath sounds, wheezes - Cardiovascular Cardiovascular exam: Present: RRR, +S1, +S2 - GI/Abdominal GI/Abdominal exam: Present: normal bowel sounds, soft. Absent: tenderness - Extremities Exam Extremities exam: Present: pedal edema, warm, radial pulses palpable and symetrical. Absent: calf tenderness - Neurological Exam Neurological exam: Present: alert, oriented X3 - Psychiatric Psychiatric exam: Present: normal affect, normal mood Internal Medicine: Result - Labs CBC & Chem 7: 08/08/16 04:46 08/08/16 04:46 Labs: Short CBC 08/07/16 08/08/16 Range/Units 09:58 04:46 WBC 12.1 H (4.3-11.1) K/mcL Hgb 11.5 D 12.1 (11.5-15.4) g/dL Hct 35.0 L 37.3 (35.3-44.9) % Plt Count 196 (140-400) K/mcL Neutrophils # 9.6 H (1.6-8.9) K/mcL BMP 08/08/16 04:46 Sodium 136 Potassium 3.9 Chloride 97 L Carbon Dioxide 28 BUN 12 Creatinine 0.67 Glucose 202 H Calcium 9.7 - Impressions Impressions Hip X-Ray 08/07/16 07:43 IMPRESSION: Status post left hip hemiarthroplasty without acute complication. D/ / 08/07/2016 10:33:16 Ravi Tucker MD / [email or web address] Interpreting Provider: Ravi Tucker MD - VTE Documentation of Mechanical Device: Venous foot pump, device Consult Discharge Plan - Plan Referrals: Rachid Benson MD [Partnered Physician] - 09/17/16 8:10 am Gay Green PAC [Physician Senior Engineering Associate] - 08/22/16 11:00 am Chrissie Ken MD [Primary Care Provider] - 08/09/16 10:00 am
[2016-08-08] MEDS: predniSONE 20 MG TABLET PO SCH (10:37)
[2016-08-09] MEDS: Ipratropium/Albuterol Neb 3 ML IH SCH ×6 (00:03→19:54)
[2016-08-09 04:59] LABS: Basophils # 0.1 K/mcL (0.0-0.2); Basophils % 0.7 %; Eosinophils # 0.2 K/mcL (0.0-0.6); Eosinophils % 1.9 %; Hemoglobin 11.2 g/dL (11.5-15.4); Immature Granulocytes % 2.3 % (0-4); Lymphocytes # 2.8 K/mcL (0.6-4.6); Lymphocytes % 23.8 %; Mean Corpuscular Hemoglobin 29.1 pg (28.0-33.3); Mean Corpuscular Volume 90.9 fL (83.0-100.0); Mean Platelet Volume 10.7 fL (9.4-12.4); Monocytes # 1.5 K/mcL (0.0-1.3); Neutrophils # 6.8 K/mcL (1.6-8.9); Platelet Count 190 K/mcL (140-400); Red Blood Count 3.85 M/mcL (3.82-4.97); Red Cell Distribution Width 13.1 % (11.5-14.5); Segmented Neutrophils % 58.3 %
[2016-08-09 05:10] LABS: BUN/Creatinine Ratio 19 (6-26); Blood Urea Nitrogen 12 mg/dL (7-20); Calcium 9.4 mg/dL (8.6-10.8); Carbon Dioxide 31 mEq/L (19-29); Chloride 98 mEq/L (98-109); Glucose 205 mg/dL (70-99); Magnesium 1.9 mg/dL (1.6-2.6); Osmolality,Calculated 296 (280-300); Phosphorous 3.2 mg/dL (2.3-4.7); Potassium 3.2 mEq/L (3.5-4.5); Sodium 140 mEq/L (136-145); eGFR For African Americans > 60 (> 60); eGFR For Non-African Americans > 60 (> 60)
--- NOTE | 2016-08-09 06:38 | Orthopedics Progress Note ---
Date of Encounter: 08/09/16 Time of Encounter: 06:38 Subjective Principal diagnosis: Hip Fracture Interval history: Patient was seen this morning doing well without complaints. Afebrile vital signs stable. Operative extremity: Neurovascularly intact Dressing clean dry and intact Calves nontender Assessment and plan: Continue with postoperative care Stable for discharge today orthopaedically Objective Vital signs: Vital Signs Temp Pulse Resp BP Pulse Ox 08/09/16 04:00 98.7 F 79 16 156/88 94 L 08/09/16 03:00 99 08/09/16 00:16 16 99 08/09/16 00:04 18 95 08/09/16 00:00 97.5 F L 104 17 142/83 96 08/08/16 20:15 18 95 08/08/16 20:00 98.0 F 70 17 157/82 95 08/08/16 19:00 95 08/08/16 16:27 18 91 L 08/08/16 14:05 97.8 F 97 18 126/75 97 08/08/16 11:47 18 96 08/08/16 11:03 98.1 F 101 18 137/95 93 L 08/08/16 08:35 20 90 L 08/08/16 07:58 94 L 08/08/16 07:13 99.0 F 104 18 147/106 100 Intake and Output 08/08/16 08/08/16 08/09/16 15:59 23:59 07:59 Intake Total 100 / 100 500 / 500 Output Total 525 / 525 Balance 100 / 100 -25 / -25 Intake: IV Fluids 100 / 100 Ancef 2,000 MG In 100 / 100 Dextrose 5% 100 ML @ 200 mls/hr IVPB Q8H [facility] Rx#: [id number] Oral 500 / 500 Output: Urine 525 / 525 Other: Blood Glucose* 193 238 - Labs CBC & BMP: 08/09/16 04:37 08/09/16 04:37 Labs: Abnormal lab results WBC 11.6 K/mcL (4.3-11.1) H 08/09/16 04:37 Hgb 11.2 g/dL (11.5-15.4) L 08/09/16 04:37 Hct 35.0 % (35.3-44.9) L 08/09/16 04:37 Monocytes # 1.5 K/mcL (0.0-1.3) H 08/09/16 04:37 Potassium 3.2 mEq/L (3.5-4.5) L 08/09/16 04:37 Carbon Dioxide 31 mEq/L (19-29) H 08/09/16 04:37 Glucose 205 mg/dL (70-99) H 08/09/16 04:37 POC Glucose 188 (58-89) H 08/08/16 07:19 Globulin 3.8 g/dL (2.4-3.5) H 08/05/16 03:36 Albumin/Globulin Ratio 0.9 (1.1-2.2) L 08/05/16 03:36 Urine Color Meredith (Yellow) A 08/06/16 04:50 Urine Clarity Turbid (Clear) A 08/06/16 04:50 Ur Specific [place] 1.029 (1.010-1.025) H 08/06/16 04:50 Urine Protein 30 mg/dL (Neg-Trace) H 08/06/16 04:50 Urine Blood Moderate (Negative) H 08/06/16 04:50 Urine Bilirubin Small (Negative) H 08/06/16 04:50 Urine Microscopic RBC 5-15 per hpf (0-3) H 08/06/16 04:50 Amorphous Sediment Many (Few) H 08/06/16 04:50 Urine Bacteria Many per hpf (None-Few) H 08/06/16 04:50 Urine Mucus Moderate (Few) H 08/06/16 04:50 - VTE Documentation of Mechanical Device: Venous foot pump, device Consult Discharge Plan - Plan Referrals: Rachid Benson MD [Partnered Physician] - 09/17/16 8:10 am Gay Green, YANA [Physician Director Of Search Engine Marketing] - 08/22/16 11:00 am Chrissie Ken MD [Primary Care Provider] - 08/09/16 10:00 am
[2016-08-09] MEDS: Budesonide/Formoterol 160/4.5 MDI IH SCH ×2 (07:51→19:54)
[2016-08-09] MEDS: Isosorbide MONOnitrate (24 HR) 30 MG TAB.ER.24H PO SCH (08:07)
[2016-08-09] MEDS: FLUoxetine 20 MG CAPSULE PO SCH (08:07)
[2016-08-09] MEDS: predniSONE 20 MG TABLET PO SCH (08:07)
[2016-08-09] MEDS: Cholecalciferol (D-3) 1,000 UNIT TABLET PO SCH (08:08)
[2016-08-09] MEDS: Multivit/Ca/Min/Fe/FA 1 TAB TABLET PO SCH (08:08)
[2016-08-09] MEDS: Famotidine 20 MG TABLET PO SCH ×2 (08:08→20:00)
[2016-08-09] MEDS: Ascorbic Acid 500 MG TABLET PO SCH ×2 (08:08→17:28)
[2016-08-09] MEDS: *HR* Heparin 5,000 UNIT/ML VIAL SQ SCH ×2 (08:08→20:00)
[2016-08-09] MEDS: Insulin LISPRO 300 UNITS/3 ML VIAL SQ SCH ×4 (08:15→20:02)
[2016-08-09] MEDS ORDERED: Azithromycin 250 MG TABLET PO SCH (09:00)
[2016-08-09] MEDS: *HR* OxyCODONE Immed Rel 5 MG TABLET PO PRN (09:06)
--- NOTE | 2016-08-09 13:55 | Discharge Summary ---
Date of Encounter: 08/09/16 Time of Encounter: 12:30 - Discharge Diagnosis (1) Closed left hip fracture Priority: Primary Status: Acute Qualifiers: Encounter type: initial encounter Qualified Code(s): S72.002A - Fracture of unspecified part of neck of left femur, initial encounter for closed fracture (2) COPD (chronic obstructive pulmonary disease) Priority: Secondary Status: Chronic Qualifiers: COPD type: emphysema Emphysema type: unspecified Qualified Code(s): J43.9 - Emphysema, unspecified (3) Chronic respiratory failure Priority: Secondary Status: Chronic Qualifiers: Respiratory failure complication: hypercapnia Qualified Code(s): J96.12 - Chronic respiratory failure with hypercapnia (4) Non-insulin dependent type 2 diabetes mellitus Priority: Secondary Status: Chronic (5) Obstructive sleep apnea Priority: Secondary Status: Chronic (6) Morbid obesity with BMI of 40.0-44.9, adult Priority: Secondary Status: Chronic (7) DVT prophylaxis Priority: Secondary Status: Acute (8) Hypertension Priority: Secondary Status: Chronic Qualifiers: Hypertension type: essential hypertension Qualified Code(s): I10 - Essential (primary) hypertension - Discharge Medications Prescriptions: Aspirin 325 mg PO Q12H #42 tablet Azithromycin [Zithromax] 250 mg PO Q24H #4 tablet OxyCODONE Immed Rel [Roxicodone 5 MG] 10 mg PO Q6H PRN #20 tablet PRN Reason: Pain PredniSONE 40 mg PO DAILY #3 tablet Home Medications: Albuterol Sulfate [Albuterol Inhaler] 2 puff IH TID 03/30/15 [History] Atenolol [Tenormin] 50 mg PO DAILY 03/30/15 [History] Cyclobenzaprine [Flexeril] 10 mg PO TID 03/30/15 [History] FLUoxetine HCl [Prozac] 40 mg PO DAILY 03/30/15 [History] Furosemide [Lasix] 20 mg PO DAILY 03/30/15 [History] Metformin HCl [Fortamet] 500 mg PO TID 03/30/15 [History] Omeprazole [PriLOSEC] 40 mg PO DAILY 03/30/15 [History] PredniSONE 10 mg PO DAILY #0 03/30/15 [History] Albuterol Neb [Proventil Neb] 2.5 mg IH Q4H PRN 08/05/16 [History] Budesonide/Formoterol 160/4.5 [Symbicort 160/4.5] 2 puff IH BID 08/05/16 [ History] Calcium Carbonate/Vitamin D3 [Calcium 1,000 + D3 Caplet] 1 tab PO TID 08/05/16 [ History] Ipratropium [ATROVENT Inhaler] 2 puff IH TID 08/05/16 [History] Isosorbide MONOnitrate (24 HR) [Imdur] 30 mg PO DAILY 08/05/16 [History] Oxygen 2 - 4 l .ROUTE AD 08/05/16 [History] Aspirin 325 mg PO Q12H #42 tablet 08/09/16 [Rx] Azithromycin [Zithromax] 250 mg PO Q24H #4 tablet 08/09/16 [Rx] OxyCODONE Immed Rel [Roxicodone 5 MG] 10 mg PO Q6H PRN #20 tablet 08/09/16 [Rx] PredniSONE 40 mg PO DAILY #3 tablet 08/09/16 [Rx] Allergies/Adverse Reactions: Allergies No Known Allergies Allergy (Verified 03/30/15 11:53) Date of admission: 08/05/16 16:09 Primary care physician: Chrissie Ken, Consults: 08/07/16 11:17 Consult to Nurse Navigator [CONS] Routine Comment: ortho navigator Consult to Occupational Therapy [CONS] Routine Comment: Evaluate, develop and implement POC Consult to Physical Therapy [CONS] Routine Comment: Evaluate, develop and implement POC Consult to Marine Service Operator [CONS] Routine Reason for SW Consult: post op joint replacement RT Post Op Consult [CONS] Routine Discharging clinician: Stefany Dejesus Anticipated date of discharge: 08/09/16 - Patient Status Disposition: Transfer SNF Condition: Good Functional capacity at discharge: uses cane/walker Overall status at discharge: patient is progressing back to baseline - Discharge Instructions Follow Up With: Rachid Benson MD [Partnered Physician] - 09/17/16 8:10 am Gay Green PAC [Physician Substation Designer] - 08/22/16 11:00 am Chrissie Ken MD [Primary Care Provider] - 08/09/16 10:00 am Additional Instructions: Please follow up with your PCP, pulmonology, and surgery appointments as listed above. Please continue wound care as recommended by surgery. Please continue Prednisone 40mg for 3 more days and then continue your home dose of Prednisone 10mg PO qd. Please take Azithromycin 250mg once a day for 3 more days. please continue all your home medications as prescribed by your primary care physician. Please use CPAP at bedtime and nasal cannula oxygen during the day. Aspirin 325mg twice a day for 21 days for DVT prophylaxis as per surgery. - Diet and Activity Activity: as per physical therapy Diet: diabetic diet Hospital course: Ms. Stovall is a 66 year old female with PMH of CHF, COPD on home oxygen, DM, morbid obesity who presented to the hospital for evaluation of left hip pain. Patient was found to have a left hip fracture and was seen by orthopedic surgery. Due to patient's chronic lung disease, pulmonary clearance was requested. Patient underwent left hip hemiarthroplasty under spinal anesthesia. She tolerated the procedure well. Her postop course was complicated with mild COPD exacerbation. She was started on steroids and antibiotics. At this time patient is stable and saturating well on nasal cannula. She was evaluated by physical therapy and SNF placement was recommended.Patient will be discharged to rehab with follow up with PCP, pulmonology, and surgery. She is to finish oral antibiotics at SNF. Patient demonstrates understanding of her diagnosis and agrees with her discharge care and plan. - Time Spent with Patient Total time spent providing and/or coordinating discharge services: - Constitutional Vitals: Temp Pulse Resp BP Pulse Ox 99.0 F 84 16 121/71 93 L 08/09/16 10:42 08/09/16 10:42 08/09/16 11:11 08/09/16 10:42 08/09/16 11:11 General appearance: Present: A&O X 3, morbidly obese, no acute distress, answers questions appropriately - Head Head exam: Present: atraumatic, normocephalic - Eye Eye exam: Present: normal appearance, conjuntiva pink, sclera anicteric - Respiratory Respiratory exam: Absent: respiratory distress, wheezes - Cardiovascular Cardiovascular exam: Present: RRR, +S1, +S2 - GI/Abdominal GI/Abdominal exam: Present: distended, normal bowel sounds, soft. Absent: tenderness - Extremities Exam Extremities exam: Present: pedal edema, warm, radial pulses palpable and symetrical. Absent: calf tenderness - Neurological Exam Neurological exam: Present: alert, oriented X3, no focal deficits - Psychiatric Psychiatric exam: Present: normal affect, normal mood - VTE Documentation of Mechanical Device: Venous foot pump, device
--- NOTE | 2016-08-09 14:30 | Physician Discharge Referral ---
[facility] Referral Info [facility] Provider in Charge after Transfer: PCP - Diagnosis (1) Closed left hip fracture Priority: Primary Status: Acute (2) COPD (chronic obstructive pulmonary disease) Priority: Secondary Status: Chronic (3) Chronic respiratory failure Priority: Secondary Status: Chronic (4) Non-insulin dependent type 2 diabetes mellitus Priority: Secondary Status: Chronic (5) Obstructive sleep apnea Priority: Secondary Status: Chronic (6) Morbid obesity with BMI of 40.0-44.9, adult Priority: Secondary Status: Chronic (7) DVT prophylaxis Priority: Secondary Status: Acute (8) Hypertension Priority: Secondary Status: Chronic - Transfer Medications Prescriptions: Azithromycin [Zithromax] 250 mg PO Q24H #4 tablet OxyCODONE Immed Rel [Roxicodone 5 MG] 10 mg PO Q6H PRN #20 tablet PRN Reason: Pain PredniSONE 40 mg PO DAILY #3 tablet Home Medications: Albuterol Sulfate [Albuterol Inhaler] 2 puff IH TID 03/30/15 [History] Atenolol [Tenormin] 50 mg PO DAILY 03/30/15 [History] Cyclobenzaprine [Flexeril] 10 mg PO TID 03/30/15 [History] FLUoxetine HCl [Prozac] 40 mg PO DAILY 03/30/15 [History] Furosemide [Lasix] 20 mg PO DAILY 03/30/15 [History] Metformin HCl [Fortamet] 500 mg PO TID 03/30/15 [History] Omeprazole [PriLOSEC] 40 mg PO DAILY 03/30/15 [History] PredniSONE 10 mg PO DAILY #0 03/30/15 [History] Albuterol Neb [Proventil Neb] 2.5 mg IH Q4H PRN 08/05/16 [History] Budesonide/Formoterol 160/4.5 [Symbicort 160/4.5] 2 puff IH BID 08/05/16 [ History] Calcium Carbonate/Vitamin D3 [Calcium 1,000 + D3 Caplet] 1 tab PO TID 08/05/16 [ History] Ipratropium [ATROVENT Inhaler] 2 puff IH TID 08/05/16 [History] Isosorbide MONOnitrate (24 HR) [Imdur] 30 mg PO DAILY 08/05/16 [History] Oxygen 2 - 4 l .ROUTE AD 08/05/16 [History] Azithromycin [Zithromax] 250 mg PO Q24H #4 tablet 08/09/16 [Rx] OxyCODONE Immed Rel [Roxicodone 5 MG] 10 mg PO Q6H PRN #20 tablet 08/09/16 [Rx] PredniSONE 40 mg PO DAILY #3 tablet 08/09/16 [Rx] Allergies/Adverse Reactions: Allergies No Known Allergies Allergy (Verified 03/30/15 11:53) - Respiratory Orders Smoking Cessation: Smoking cessation has been advised. For more information, call the [place] Tobacco Quit Line at 0-242-XYPL-NOW. - Treatments List/Other: Please follow up with your PCP, pulmonology, and surgery appointments as listed above. Please continue wound care as recommended by surgery. Please continue Prednisone 40mg for 3 more days and then continue your home dose of Prednisone 10mg PO qd. Please take Azithromycin 250mg once a day for 3 more days. please continue all your home medications as prescribed by your primary care physician. Please use CPAP at bedtime and nasal cannula oxygen during the day. CERTIFICATION: I certify that the transfer of the above named patient to an Extended Care Facility is necessary for the continuing treatment of the diagnosis listed. The above information is true and accurate reflection of patient's current condition. Confidential - Redisclosure prohibited without a patient's written consent.
[2016-08-09 19:15] VITALS: BP 130/77
== END 2016-08-09 21:20 | DRG 470 ==
LOC: EMEROO 19:10 → 3BNU 19:10 → SUATTDRO 21:27 → 3BNU 22:00 → 3NENU 08-05 11:53
PROVIDERS: ADMIT Internal Medicine; ATTEND Internal Medicine